=== PATIENT | male | born 1950 | race Caucasian/White ===

== ENCOUNTER 2019-07-16 08:53 | Day surgery (SDC) | payer OTHER ==
[~2019-07-16] VITALS: Ht 170.2 cm; Wt 89.7 kg
[~2019-07-16 08:53] MED LIST: GLUCCAP23 PO; LEVO30TA PO; MULT1TAB8 PO; NS 1,000 ML IV ONE; ROSU40TA4 PO; VITA500C24 PO
[2019-07-16] MEDS ORDERED: PROPOFOL 200 MG/20 ML VIAL As Ordered ONE ×2 (10:46→11:09)
--- NOTE | 2019-07-16 11:02 | ROOR ---
Patient Name: Rayray Buenrostro Procedure Date: 07/16/2019 10:45 AM Date of : 1950 Age: 69 Room: [facility] Gender: Male Note Status: Finalized Procedure: Colonoscopy Indications: Screening for colorectal malignant neoplasm Providers: DO Valentina Dodge MD: Valdo Alarcon Md Requesting Provider: Medicines: Propofol per Anesthesia Complications: No immediate complications. Procedure: Pre-Anesthesia Assessment: - Prior to the procedure, a History and Physical was performed, and patient medications and allergies were reviewed. The patient is competent. The risks and benefits of the procedure and the sedation options and risks were discussed with the patient. All questions were answered and informed consent was obtained. Patient identification and proposed procedure were verified by the physician, the nurse, the anesthesiologist and the machine tool technician instructor in the endoscopy suite. Mental Status Examination: alert and oriented. Airway Examination: normal oropharyngeal airway and neck mobility. Respiratory Examination: clear to auscultation. CV Examination: normal. Prophylactic Antibiotics: The patient does not require prophylactic antibiotics. Prior Anticoagulants: The patient has taken no previous anticoagulant or antiplatelet agents. ASA Grade Assessment: II - A patient with mild systemic disease. After reviewing the risks and benefits, the patient was deemed in satisfactory condition to undergo the procedure. The anesthesia plan was to use monitored anesthesia care (MAC). Immediately prior to administration of medications, the patient was re-assessed for adequacy to receive sedatives. The heart rate, respiratory rate, oxygen saturations, blood pressure, adequacy of pulmonary ventilation, and response to care were monitored throughout the procedure. The physical status of the patient was re-assessed after the procedure. The Colonoscope was introduced through the anus and advanced to the cecum, identified by appendiceal orifice and ileocecal valve. The colonoscopy was performed without difficulty. The patient tolerated the procedure well. Findings: Non-bleeding internal hemorrhoids were found during retroflexion. The hemorrhoids were Grade II (internal hemorrhoids that prolapse but reduce spontaneously). The exam was otherwise without abnormality on direct and retroflexion views. Impression: - Non-bleeding internal hemorrhoids. - The examination was otherwise normal on direct and retroflexion views. - No specimens collected. Recommendation: - Patient has a contact number available for emergencies. The signs and symptoms of potential delayed complications were discussed with the patient. Return to normal activities tomorrow. Written discharge instructions were provided to the patient. - Repeat colonoscopy in 5-10 years for screening purposes. - Return to my office PRN. Dimas Torres DO 07/16/2019 11:01:39 AM Electronically signed by Dimas Torres DO Number of Addenda: 0 Note Initiated On: 07/16/2019 10:45 AM Estimated Blood Loss: Estimated blood loss: none.
[2019-07-16 11:20] VITALS: BP 133/99
== END 2019-07-16 11:43 | disposition home or self-care (01) ==
LOC: M OPP 08:53
PROVIDERS: ATTEND Surgery
DX: Z12.11 Encounter for screening for malignant neoplasm of colon (principal); K64.1 Second degree hemorrhoids; Z79.899 Other long term (current) drug therapy

== ENCOUNTER → 2021-06-06 | Outpatient (REF) | payer MEDICARE ==
[~2021-06-06] MED LIST changes: +ASPI81CH8 PO; +DOCU100C16 PO; +FERR1TAB8 PO; +FOLI1TAB11 PO; -NS 1,000 ML IV ONE; +OXYC-517 PO; +THIA100TA PO
[2021-06-06 12:31] LABS: BLOOD UREA NITROGEN 11 MG/DL (7-18); CREATININE FOR GFR 1.07 MG/DL (0.70-1.30); GLUCOSE, FASTING 109 MG/DL (70-100)
[2021-06-06 12:32] LABS: ALBUMIN 4.3 GM/DL (3.2-5.2); ALT/SGPT 46 U/L (12-78); BILIRUBIN,TOTAL 1.2 MG/DL (0.2-1.0); CALCIUM LEVEL 8.6 MG/DL (8.8-10.2); CARBON DIOXIDE LEVEL 27 MEQ/L (21-32); CHLORIDE LEVEL 110 MEQ/L (98-107); CHOLESTEROL LEVEL 136 MG/DL (<200); CHOLESTEROL RISK RATIO 1.638 (<5); FREE T4 0.91 NG/DL (0.76-1.46); GLOMERULAR FILTRATION RATE > 60.0 (>49); HDL CHOLESTEROL 83 MG/DL (>40); LDL CHOLESTEROL 34 MG/DL (<100); NON-HDL-C 53 MG/DL; SODIUM LEVEL 141 MEQ/L (136-145); TOTAL PROTEIN 6.7 GM/DL (6.4-8.2); TRIGLYCERIDES LEVEL 93 MG/DL (<150)
== END ==
LOC: M SFHCCLAY 09:55
PROVIDERS: ATTEND Family Medicine
DX: R03.0 Elevated blood-pressure reading, without diagnosis of hypertension (principal); E78.5 Hyperlipidemia, unspecified; E03.9 Hypothyroidism, unspecified

== ENCOUNTER → 2021-06-10 | Outpatient (CLI) | payer MEDICARE ==
[~2021-06-10] MED LIST changes: -ASPI81CH8 PO; -DOCU100C16 PO; -FERR1TAB8 PO; -FOLI1TAB11 PO; -OXYC-517 PO; -THIA100TA PO
--- NOTE | 2021-06-10 09:17 | REP ---
INDICATION: PAIN RIGHT HIP. COMPARISON: None. TECHNIQUE: Single AP view of the pelvis. AP and frogleg views of the right hip. FINDINGS: AP pelvis: There is joint space narrowing of the right hip superiorly and osteophytic growth compatible with osteoarthritis. The left hip is unremarkable on this single view. There are surgical clips in the scrotum. Right hip AP and frogleg views: There is joint space narrowing superiorly and osteophytic growth compatible with osteoarthritis. No femoral head deformity. No fracture or dislocation. There are no calcifications. There are surgical clips in the scrotum IMPRESSION: Osteoarthritis. <Electronically signed by Dimas Olivas > 06/10/21 0900
== END ==
LOC: M SOG 08:51
PROVIDERS: ATTEND Orthopaedic Surgery Adult Reconstructive Orthopaedic Surgery
DX: M16.11 Unilateral primary osteoarthritis, right hip (principal)

== ENCOUNTER 2021-06-27 08:41 | Outpatient (RCR) | payer MEDICARE | END 2021-06-28 | LOC: M PT 08:41 | PROVIDERS: ATTEND Orthopaedic Surgery Adult Reconstructive Orthopaedic Surgery | DX: Z01.818 Encounter for other preprocedural examination (principal); Z96.641 Presence of right artificial hip joint ==

== ENCOUNTER → 2021-07-25 | Outpatient (REF) | payer MEDICARE ==
[2021-07-25 11:02] LABS: BASO % 0.6 % (0.0-1.0); EOS # 0.3 10^3/uL (0.0-0.5); HEMATOCRIT 46.3 % (42.0-52.0); LYMPH # 1.5 10^3/uL (1.5-5.0); LYMPH % 27.5 % (24.0-44.0); MEAN CORPUSCULAR HEMOGLOBIN 33.5 pg (27.0-33.0); MEAN CORPUSCULAR HGB CONC 34.6 g/dl (32.0-36.5); MEAN CORPUSCULAR VOLUME 97.1 fl (80.0-96.0); MONO # 0.6 10^3/uL (0.0-0.8); MONO % 11.8 % (2.0-8.0); NEUTROPHILS % 54.9 % (36.0-66.0); PLATELET COUNT, AUTOMATED 144 10^3/uL (150-450); RED BLOOD COUNT 4.77 10^6/uL (4.30-6.10); WHITE BLOOD COUNT 5.4 10^3/uL (4.0-10.0)
== END ==
LOC: M SFHCCLAY 07:11
PROVIDERS: ATTEND Family Medicine
DX: Z01.818 Encounter for other preprocedural examination (principal)

== ENCOUNTER → 2021-07-27 | Outpatient (CLI) | payer MEDICARE ==
--- NOTE | 2021-08-01 16:33 | REP ---
INDICATION: UNILAT OA FROM DYSPLASIA R HIP, ASSESS BONE QUALIT. Repeat dictation. This study is acquired on 07/27/2021 and is presented to me for dictation on 01 August 2021. COMPARISON: Comparison radiographs of the pelvis and right hip are from June 10, 2021. TECHNIQUE: Damion protocol. Helical scanning is acquired in axial 3 mm images are re-formatted at the hips and knees. Coronal and sagittal MPR images are included. FINDINGS: At the level of the hips, there is moderate to advanced osteoarthritis of the hip with superior joint space narrowing mild sclerosis and well established femoral osteophyte formation. Mild acetabular osteophyte formation is seen in there is a subcortical cyst in the superolateral aspect of the acetabulum. There is mild osteoarthritic spurring on the left with subcortical cyst formation visible on the left as well. Joint space is preserved on the left however. No bony destructive lesion is seen. Sacrum and SI joints are intact. There is degenerative spondylosis in the lumbar spine with partial fusion of the L5-S1 disc and osteophyte formation and disc space narrowing at L4-5. Prostate is mildly prominent. Vas deferens is calcified. There is a small nodule along the lateral wall of the urinary bladder on the left. I cannot exclude bladder neoplasm. this measures 1.1 cm in greatest diameter. Cystoscopy is recommended. No pelvic adenopathy is seen. At the knee joint level, there is mild patellar spurring bilaterally. No other finding. IMPRESSION: 1. Osteoarthritic changes most notably affecting the right hip. 2. Incidental finding of a 1.1 cm soft tissue nodule along the left posterolateral bladder wall rule out bladder neoplasm. Recommend cystoscopy. <Electronically signed by Haris Madera > 08/01/21 8012
== END ==
LOC: M RAD 09:50
PROVIDERS: ATTEND Orthopaedic Surgery Adult Reconstructive Orthopaedic Surgery
DX: M16.31 Unilateral osteoarthritis resulting from hip dysplasia, right hip (principal)

== ENCOUNTER → 2021-08-06 | Outpatient (CLI) | payer MEDICARE | LOC: M LABSMTC 10:26 | PROVIDERS: ATTEND Anesthesiology | DX: Z01.818 Encounter for other preprocedural examination (principal); Z11.52 Encounter for screening for COVID-19 ==

== ENCOUNTER 2021-08-11 08:20 | Inpatient (IN) | payer MEDICARE ==
[~2021-08-11] VITALS: Ht 167.6 cm; Wt 92.5 kg
[~2021-08-11 08:20] MED LIST changes: +ACETAMINOPHEN 500 MG TAB PO ONE; +LIDOCAINE 1% MDV 20ML VIAL SQ PRN; +LR 1,000 ML IV ONE; +NAPROXEN 250 MG TAB PO ONE; +NS 1,000 ML IV ONE; +PREGABALIN 25 MG CAP (LYRICA) PO ONE; +ROPIVA 125MG/EPINEPH 0.25MG/CLONID 40MCG/KETOR 15MG IN NS 50ML SYRINGE PA ONE; +TRANEXAMIC ACID INJection 1,000 MG in NS 50 ML IV ONE; +ceFAZolin SOD 2 GM in IV 1 EA IV ONE; +dexameTHASONE 4 MG/ML 1ML VIAL (J1100 PER 1MG) IV ONE
--- OUTSIDE RECORDS SUMMARY | 2021-08-11 08:23 | CCD ---
Author Author [facility] Organization [facility] Address Unknown Phone Unavailable Care Team Providers Care Sales Promotion Manager Name Role Phone Elsy Heart Unavailable PROBLEMS Type Condition ICD9-CM Code VQJ05-HD Code Onset Dates Condition S tatus W/U Status Risk SNOMED Code Notes Problem White coat syndrome without diagnosis of hypertension R03.0 Active confirmed 982997391 Problem RBBB I45.10 Active confirmed 50430294 Problem Other chronic pain G89.29 Active confirmed 8 9356526 Problem Acquired hypothyroidism E03.9 Active confirmed 668525337 Problem Dyslipidemia E78.5 Active confirmed 2675468 07 Problem IFG (impaired fasting glucose) R73.01 Active confir med [id number] ALLERGIES No Known Allergies ENCOUNTERS from 1950 to 2021-08-03 Encounter Location Date Provider Diagnosis [address] [phone] [place] [address] Jul, 2021 Elsy Heart Preoperative clearance Z01.818 ; RBBB I4 5.10 ; White coat syndrome without diagnosis of hypertension R03.0 ; Right ear impacted cerumen H61.21 ; Dyslipidemia E78.5 ; Acquired hypothyroidism E03.9 and Immunization not carried out because of patient refusal Z28.21 IMMUNIZATIONS No Information SOCIAL HISTORY Tobacco Use: Social History Observation Description Date Details (start date - stop date) Never Smoker Sex Assigned At : Social History Observation Description Sex Assigned At Unknown Audit Question Answer Notes Total Score: 8 Interpretation: Simple Advice Language: Question Answer Notes Languages spoken: Vietnamese Hinduism: Question Answer Notes Hinduism No confucianism beliefs that would impact health care. Sexual Hx: Question Answer Notes Had sex in the last 12 months (vaginal, oral, or anal)? Yes Have you ever had an STD? No with Women only Use protection? No Drug and Alcohol Question Answer Notes Total Score: 0 Interpretation: No problems reported Alcohol Screening: Question Answer Notes Did you have a drink containing alcohol in the past year? Ye s Points 5 Interpretation Positive How often did you have six or more drinks on one occas ion in the past year? Never (0 points) How many drinks did you have on a typica l day when you were drinking in the past year? 3 or 4 (1 point) How often did you have a drink containing alcohol in t he past year? Four or more times a week (4 points) Tobacco Use: Question Answer Notes Are you a: never smoker REASON FOR REFERRAL from 1950 to 2021-08-03 Reason 71-year-old male with right bundle branch block for preoperative clearance.|URGENT REFERRAL Diagnosis 1 RBBB (I45.10) Diagnosis 2 Preoperative clearance (Z01. 818) Referral Organization [facility] Referring Provider First Name Elsy Referring Provider Last Name Una Referring Provider Specialty Family Medicine Referred Provider Cardiology,Assoc Referred Provider Specialty Cardiology Referral Priority Urgent Referral Appointment Date 2021-09-06 General Notes Elsy Heart DO 2020 9:39:42 AM > Patient is a 71-year-old male who presented for preoperative evaluation. Patient was noted to have a right bundle branch block on EKG. There were no priors for comparison. Patient does not have any other cardiac history. Referral for preoperative evaluation. Please evaluate and treatKrystal Valladares LPN 08/01/2021 12:10:05 PM > referral sentKrystal Valladares LPN 08/01/2021 12:10:39 PM > Sending EKG separately. Would not attach to referral VITAL SIGNS Weight 206 lbs Jul, Height 5'6" in Jul, BMI 33.25 kg/m2 Jul, Heart Rate 60 /min Jul, Respiratory Rate 18 /min Jul, Temperature 97.5 degrees Fahrenheit Jul, Oximetry 97%RA Jul, Blood pressure systolic 154 mm Hg Jul, Blood pressure diastolic 99 mm Hg Jul, MEDICATIONS Medication SIG (Take, Route, Frequency, Duration) Notes Start Da te End Date Status Multivitamin Adult - 1 tablet Orally Once a day for 30 day(s) Active Sqgrri-Zqpbayzqn-Flidiv-Hyal - as directed Orally Active Tylenol Extra Strength 500 MG 1 tablet as needed Orally every 6 hrs Active Crestor 40 MG 1 tablet Orally Once a day for 90 days Active Move Free Ultra Joint Health 40-5-3.3 MG as directed Orally Active Synthroid 50 MCG 1 tablet in the morning on a n empty stomach Orally Once a day for 90 days Active Aspirin 81 81 MG 1 tablet Orally Once a day Not-Taking Aleve 220 MG 1 tablet with food or milk as needed Orally every 12 hrs Active Vitamin C 500 MG as directed Orally Active PROCEDURES from 1950 to 2021-08-03 Procedure Date Ordered Result Body Site ELECTROCARDIOGRAM, COMPLETE EKG 2021-08-01 N/A RESULTS No Results REASON FOR VISIT Dr Quintana EKG needed MEDICAL (GENERAL) HISTORY Type Description Date Medical History high cholesterol Medical History athritis Medical History hypothyroid Surgical History No know Surgical history Goals Section No Information Health Concerns No Information MEDICAL EQUIPMENT No Information MENTAL STATUS No Information FUNCTIONAL STATUS No Information ASSESSMENTS Encounter Date Diagnosis Assessment Notes Treatment Notes Treatm ent Clinical Notes Jul, Preoperative clearance (ICD-10 - Z01.818) Patient presents for preoperative evaluation for right hip surgery on 08/11/2021. Review of their medical history, medications were performed. At this time patient does require further medical evaluation prior to surgery. Patient does not require any further laboratory evaluation prior to surgery. Patient was counseled to hold all medications the morning of surgery. Patient is not medically optimized for surgery and will need evaluation by cardiology. Jul, RBBB (ICD-10 - I45.10) Referral placed to cardiology Jul, White coat syndrome without diagnosis of hypertension (ICD-10 - R03.0) Continue to monitor Jul, Right ear impacted cerumen (ICD-10 - H61.21) Patient asymptomatic, this will not have any impact on surgery Jul, Dyslipidemia (ICD-10 - E78.5) Refill sent Jul, Acquired hypothyroidism (ICD-10 - E03.9) Refill sent Jul, Immunization not carried out because of patient refusal (ICD-10 - Z28.21) PLAN OF TREATMENT Medication Medication Name Sig Start Date Stop Date Crestor 40 MG 1 tablet Orally Once a day for 90 days Synthroid 50 MCG 1 tablet in the morning on a n empty stomach Orally Once a day for 90 days Treatment Notes Assessment Notes Clinical Notes Preoperative clearance Patient presents for preoperative evaluation for right hip surgery on 08/11/2021. Review of their medical history, medications were performed. At this time patient does require further medical evaluation prior to surgery. Patient does not require any further laboratory evaluation prior to surgery. Patient was counseled to hold all medications the morning of surgery. Patient is not medically optimized for surgery and will need evaluation by cardiology. RBBB Referral placed to c ardiology White coat syndrome without diagnosis of hypertension Continue to monitor Right ear impacted cerumen Patient asymp tomatic, this will not have any impact on surgery Dyslipidemia Refill sent Acquired hypothyroidism Refill sent Referrals Referral Date Details 2021-09-06 2021-09-06, 71-year-old male with right bundle branch block for preoperative clearance.|URGENT REFERRAL, Assoc Cardiology Next Appt Details 3 months: follow up Reason: Provider Name:Elsy Heart, 2021-10 08:00:00 AM, [address], , [place], [address], Insurance Providers Payer Name Payer Address Payer Phone Insured Name Patient Relati onship to Insured Coverage Start Date Coverage End Date [employer] [facility] [address] [address] [facility] [address] [phone] SURY MELENDEZ self
--- OUTSIDE RECORDS SUMMARY | 2021-08-11 08:23 | CCD ---
Author Author [facility] Organization [facility] Address Unknown Phone Unavailable Care Team Providers Care Bridges Supervisor Name Role Phone Elsy Heart Unavailable PROBLEMS Type Condition ICD9-CM Code WZZ58-BM Code Onset Dates Condition S tatus W/U Status Risk SNOMED Code Notes Problem White coat syndrome without diagnosis of hypertension R03.0 Active confirmed 188644605 Problem RBBB I45.10 Active confirmed 50729197 Problem Other chronic pain G89.29 Active confirmed 8 8657209 Problem Acquired hypothyroidism E03.9 Active confirmed 711724753 Problem Dyslipidemia E78.5 Active confirmed 6955911 07 Problem IFG (impaired fasting glucose) R73.01 Active confir med 742421218 ALLERGIES No Known Allergies ENCOUNTERS from 1950 to 2021-08-09 Encounter Location Date Provider Diagnosis [address] [phone] [place] [address] Jul, Elsy Heart IMMUNIZATIONS No Information SOCIAL HISTORY Tobacco Use: Social History Observation Description Date Details (start date - stop date) Never Smoker Sex Assigned At : Social History Observation Description Sex Assigned At Unknown Audit Question Answer Notes Total Score: 8 Interpretation: Simple Advice Language: Question Answer Notes Languages spoken: Greenlandic Restoration: Question Answer Notes Restoration No congregation beliefs that would impact health care. Sexual [...] you a: never smoker REASON FOR REFERRAL No Information VITAL SIGNS No information MEDICATIONS Medication SIG (Take, Route, Frequency, Duration) Notes Start Da te End Date Status Multivitamin Adult - 1 tablet Orally Once a day for 30 day(s) Active Ouwppq-Udxcxfoyd-Fiaugb-Hyal - as directed Orally Active Tylenol Extra [...] 500 MG as directed Orally Active PROCEDURES No Information RESULTS No Results REASON FOR VISIT MARKY CAN YOU CHECK ON THIS.? MEDICAL (GENERAL) HISTORY Type Description Date Medical History high cholesterol Medical History athritis Medical History hypothyroid Surgical History No know Surgical history Goals Section No Information Health Concerns No Information MEDICAL EQUIPMENT No Information MENTAL STATUS No Information FUNCTIONAL STATUS No Information ASSESSMENTS No Information PLAN OF TREATMENT Medication Medication Name Sig Start Date Stop Date Crestor 40 MG 1 tablet Orally Once a day for 90 days Synthroid 50 MCG 1 tablet in the morning on a n empty stomach Orally Once a day for 90 days Next Appt Details Provider Name:Elsy Heart, 2021-10 08:00:00 AM, [address], , [place], [address], Insurance Providers Payer Name Payer Address Payer Phone Insured Name Patient Relati onship to Insured Coverage Start Date Coverage End Date [facility] [address] [address] [facility] [phone] SURY MELENDEZ self
--- OUTSIDE RECORDS SUMMARY | 2021-08-11 08:24 | CCD | Continuity of Care Document ---
Author Author Rayray HE MD Organization Unknown Address [address] , [place] [address] Phone [phone] Care Team Providers Care Siphon Operator Name Role Phone Valdo Alarcon M.D. AUTM [phone] AUTM Unavailable Elsy Heart D.O. AUTM [phone] Problems Description No Information Available Social History Type Date Description Comments Sex Unknown ETOH Use 4 A Day beer Tobacco Use Start: Unknown Denies Smoking Recreational Drug Use Denies Drug Use Smoking Status Reviewed: 06/10/21 Denies Smoking Allergies, Adverse Reactions, Alerts Description No Known Drug Allergies Medications Active Medications SIG Qnty Indications Ordering Provide r Date Synthroid 25mcg Tablets 1 qd Unknown Rosuvastatin Calcium 40mg Tablets 1 qd Unknown Multivitamin Adults 50+ Adlt 50+ T ablets 1 by mouth every day Unknown Glucosamine Chondroitin 1500 Complex 1500Com Capsules 2 daily Unknown Vitamin C 500mg Tablets 1 a d ay Unknown Immunizations Description No Information Available Vital Signs Date Vital Result Comment 06/10/2021 9:11am Body Temperature 98.0 F Height 67 inches 5'7" Weight 201.00 lb BMI (Body Mass Index) 31.5 kg/m2 [place] Body Weight 148 lb Weight 91.174 kg BSA (Body Surface Area) 2.03 m2 07/07/2019 10:44am BP Systolic 164 mmHg BP Diastolic 98 mmHg Height 67 inches 5'7" Weight 198.38 lb BMI (Body Mass Index) 31.1 kg/m2 [place] Body Weight 148 lb Weight 89.983 kg BSA (Body Surface Area) 2.02 m2 Results Description No Information Available Procedures Description No Information Available Medical Devices Description No Information Available Encounters Description No Information Available Assessments Description No Information Available Plan of Treatment No Information Available Functional Status Description No Information Available Mental Status Description No Information Available Referrals Description No Information Available
--- OUTSIDE RECORDS SUMMARY | 2021-08-11 08:24 | CCD ---
Author Author [facility] Organization [facility] Address Unknown Phone Unavailable Care Team Providers Care Gluing Machine Operator Electronic Name Role Phone Ghassan Quintana MD Unavailable Unavailable Ghassan Quintana MD Unavailable Unavailable Ghassan Quintana MD Unavailable Unavailable Ghassan Quintana MD Unavailable Unavailable Ghassan Quintana MD Unavailable Unavailable Ghassan Quintana MD Unavailable Unavailable Ghassan Quintana MD Unavailable Unavailable Ghassan Quintana MD Unavailable Unavailable Ghassan Quintana MD Unavailable Unavailable DEMETRIUS BLUM Unavailable Unavailable Jessica Hilario MD Unavailable Unavailable Jessica Hilario MD Unavailable Unavailable Jessica Hilario MD Unavailable Unavailable Jessica Hilario MD Unavailable Unavailable Jessica Hilario MD Unavailable Unavailable Jessica Hilario MD Unavailable Unavailable Jessica Hilario MD Unavailable Unavailable Jessica Hilario MD Unavailable Unavailable Jessica Hilario MD Unavailable Unavailable Jessica Hilario MD Unavailable Unavailable Jessica Hilario MD Unavailable Unavailable Jessica Hilario MD Unavailable Unavailable Jessica Hilario MD Unavailable Unavailable Jessica Hilario MD Unavailable Unavailable Jessica Hilario MD Unavailable Unavailable Jessica Hilario MD Unavailable Unavailable Jessica Hilario MD Unavailable Unavailable Jessica Hilario MD Unavailable Unavailable Jessica Hilario MD Unavailable Unavailable Jessica Hilario MD Unavailable Unavailable Jessica Hilario MD Unavailable Unavailable Jessica Hilario MD Unavailable Unavailable Jessica Hilario MD Unavailable Unavailable Jessica Hilario MD Unavailable Unavailable Jessica Hilario MD Unavailable Unavailable Jessica Hilario MD Unavailable Unavailable Slezka, Vojtech MD Unavailable Unavailable Slezka, Vojtech MD Unavailable Unavailable Slezka, Vojtech MD Unavailable Unavailable Slezka, Vojtech MD Unavailable Unavailable Slezka, Vojtech MD Unavailable Unavailable Slezka, Vojtech MD Unavailable Unavailable Slezka, Vojtech MD Unavailable Unavailable Slezka, Vojtech MD Unavailable Unavailable Slezka, Vojtech MD Unavailable Unavailable Slezka, Vojtech MD Unavailable Unavailable Slezka, Vojtech MD Unavailable Unavailable Slezka, Vojtech MD Unavailable Unavailable Slezka, Vojtech MD Unavailable Unavailable Slezka, Vojtech MD Unavailable Unavailable Slezka, Vojtech MD Unavailable Unavailable Slezka, Vojtech MD Unavailable Unavailable Slezka, Vojtech MD Unavailable Unavailable Slezka, Vojtech MD Unavailable Unavailable Slezka, Vojtech MD Unavailable Unavailable Slezka, Vojtech MD Unavailable Unavailable Slezka, Vojtech MD Unavailable Unavailable Slezka, Vojtech MD Unavailable Unavailable Slezka, Vojtech MD Unavailable Unavailable Slezka, Vojtech MD Unavailable Unavailable Slezka, Vojtech MD Unavailable Unavailable Slezka, Vojtech MD Unavailable Unavailable Slezka, Vojtech MD Unavailable Unavailable Slezka, Vojtech MD Unavailable Unavailable Slezka, Vojtech MD Unavailable Unavailable Slezka, Vojtech MD Unavailable Unavailable Slezka, Vojtech MD Unavailable Unavailable Slezka, Vojtech MD Unavailable Unavailable Re-disclosure Warning The records that you are about to access may contain information from federally-assisted alcohol or drug abuse programs. If such information is present, then the following federally mandated warning applies: This information has been disclosed to you from records protected by federal confidentiality rules (42 CFR part 2). The federal rules prohibit you from making any further disclosure of this information unless further disclosure is expressly permitted by the written consent of the person to whom it pertains or as otherwise permitted by 42 CFR part 2. A general authorization for the release of medical or other information is NOT sufficient for this purpose. The Federal rules restrict any use of the information to criminally investigate or prosecute any alcohol or drug abuse patient.The records that you are about to access may contain highly sensitive health information, the redisclosure of which is protected by Article 27-F of the [facility] Public Health law. If you continue you may have access to information: Regarding HIV / AIDS; Provided by facilities licensed or operated by the [facility] Office of Mental Health; or Provided by the [facility] Office for People With Developmental Disabilities. If such information is present, then the following [facility] mandated warning applies: This information has been disclosed to you from confidential records which are protected by state law. State law prohibits you from making any further disclosure of this information without the specific written consent of the person to whom it pertains, or as otherwise permitted by law. Any unauthorized further disclosure in violation of state law may result in a fine or half-way sentence or both. A general authorization for the release of medical or other information is NOT sufficient authorization for further disc losure. Family History Family Member Name Family Member Gender Family Member Status Date o f Status Description Data Source(s) Unknown Male Problem [facility] ([facility]) () - at age 89 Encounters Encounter Providers Location Date Indications Data Source(s ) Outpatient Referrer: Jessica ANTHONYBRIAN-SJP.BRIAN 07/29 01:42:42 PM EDT - 08/10/2021 03:36:[address] [facility] Outpatient Attender: Jessica Hilario MDReferrer: DWAYNE SAN-SJP.BRIAN 08/08/2021 08:17:20 AM EDT - 08/08/2021 09:31:[address] [facility] [place] [address] [place] [address] 08/04/2021 12:00:00 AM EDT eCW1 ([facility]) Outpatient [address] [place] [address] 08/01/2021 12:00:00 AM EDT eCW1 ([facility]) [place] [address] [facility] [address] 06/22/2021 12:00:00 AM EDT eCW1 ([facility]) Unknown [address] [facility] [place] [address] 06/17/2021 12:00:00 AM EDT eCW1 ([facility]) Outpatient Attender: Ghassan Marie/Jose M/Thomas/Angelina reid 06/10/2021 09:00:00 AM EDT [facility] ([facility]) [place] [address] [facility] [address] [facility] [address] 06/06/2021 12:00:00 AM EDT eCW1 ([facility]) Immunizations Vaccine Date Status Description Data Source(s) COVID-19 VACC,MRNA(MODERNA)/PF 03/21/2021 12:00:00 AM EDT completed [facility] COVID-19 VACCINE Moderna 03/21/2021 12:00:00 AM EDT completed [facility] Vaccine Series Complete: YESThis Data wa s Submitted to [facility] Via [employer]. COVID-19 VACCINE Moderna 02/17/2021 12:00:00 AM EDT completed [facility] Vaccine Series Complete: NOThis Data was Submitted to [facility] Via [employer]. COVID-19 VACC,MRNA(MODERNA)/PF 02/17/2021 12:00:00 AM EDT completed [facility] Medications Medication Brand Name Start Date Product Form Dose Route Admi nistrative Instructions Pharmacy Instructions Status Indications Reaction Description Data Source(s) 50 mcg 08/01/2021 12:00:00 AM EDT tablet 90 TAKE ONE TABLET BY MOUTH EVERY DAY IN THE MORNING ON AN EMPTY STOMACH TAKE ONE TABLET BY MOUTH EVERY DAY IN MORNING ON AN EMPTY STOMACH SOLD: 08/09/2021 [facility] Rosuvastatin calcium 40 MG Oral Tablet ROSUVASTATIN CALCIUM 08/01/2021 12:00:00 AM EDT tablet 90 TAKE ONE TABLET BY MOUTH HIPOLITO DAY TAKE ONE TABLET BY MOUTH EVERY DAY SOLD: 08/09/2021 [facility] Insurance Providers Payer name Policy type / Coverage type Policy ID Covered alliance party ID Covered alliance party's relationship to negron Policy Negron Plan Information [facility] MEDICARE [id number] [facility] MEDICARE [id number] Addie [id number] [facility] [id number] SP [id number] [facility] [id number] SP [id number] 'S ADMINISTRATION [id number] SP [id number] SELF PAY ONLY MEDICARE SP A[employer] HE[employer] CARE OPTIONS [id number] [facility] [id number] [facility]-Med[facility] Part B [id number] [facility] [employer] [id number] Self [id number] [facility] [employer] [id number] Self [id number] Problems, Conditions, and Diagnoses Code Display Name Description Problem Type Effective Dates Data Source(s) I45.2 Bifascicular block Bifascicular block Diagnosis 01:42:[address] [facility] I45.10 Unspecified right bundle-branch block Un specified right bundle-branch block Diagnosis 08/08/2021 08:17:[address] [facility] Z01.810 Encounter for preprocedural cardiovascul ar examination Encounter for preprocedural cardiovascul Diagnosis 08/08/2021 08:17:20 AM EDT [facility] R03.0 Elevated blood pressure reading Elevated blood pressur e reading [id number] 08/08/2021 12:00:[address] [facility] I45.2 Bifascicular block Bifascicular block [id number] 12:00:[address] [facility] I45.10 Right bundle branch block Right bundle branch block 64 [id number] 08/06/2021 12:00:[address] [facility] Z01.810 Preoperative cardiovascular examination Preoperative cardiovascular examination [id number] 08/06/2021 12:00:[address] [facility] I45.10 [id number] RBBB Problem 08/01/2021 12:00:00 AM ED T eCW1 ([facility]) R73.01 [id number] IFG (impaired fasting glucose) Problem 06/22/2021 12:00:00 AM EDT eCW1 ([facility]) R03.0 [id number] White coat syndrome without diagnosis of hypertension Problem 06/22/2021 12:00:00 AM EDT eCW1 ([facility]) E78.5 [id number] Dyslipidemia Problem 06/06/2021 12:00:00 AM EDT eCW1 ([facility]) E03.9 [id number] Acquired hypothyroidism Problem 06/06/2021 1 2:00:00 AM EDT eCW1 ([facility]) Surgeries/Procedures Procedure Description Date Indications Data Source(s) ECG ROUTINE ECG W/LEAST 12 LDS W/I&R <td>POCT AMB EKG</td><td>Routine</td><td>08/08/2021 9:07 AM EDT</td><td> Preoperative cardiovascular examination Right bundle branch block</td><td> </td> 08/08/2021 09:07:00 AM EDT Right bundle branch blockPreoperative cardiovascular e xamination [facility] Right bundle branch block Preoperative cardiovascular examination ECG ROUTINE ECG W/LEAST 12 LDS W/I&R 08/01/2021 12:00: 00 AM EDT eCW1 ([facility]) BLOOD COUNT COMPLETE AUTO&AUTO DIFRNTL WBC COUNT <td>C BC AND DIFFERENTIAL</td><td>Routine</td><td>07/25/2021</td><td></td><td> </td> 07/25/2021 12:00:[address] [facility] LIPID PANEL <td>LIPID PANEL</td><td>Rout ine</td><td>07/25/2021</td><td></td><td> </td> 07/25/2021 12:00:[address] [facility] BASIC METABOLIC PANEL CALCIUM TOTAL <td>BASIC METABOLI C PANEL</td><td>Routine</td><td>07/25/2021</td><td></td><td> </td> 07/25/2021 12:00:[address] [facility] OFFICE OUTPATIENT NEW 45 MINUTES 06/10/2021 12:00:00 A M EDT [facility] ([facility] ) Results ID Date Data Source TSH 06/06/2021 12:00:00 AM EDT eCW1 ([facility]) Name Value Range Interpretation Code Description Data Tanya rce(s) Supporting Document(s) 1.850 0.358-3.740 THYROID STIMULATING HORM ONE eCW1 ([facility]) ID Date Data Source LIPID PANEL (CARDIAC RISK) 06/06/2021 12:00:00 AM EDT eCW1 ( [facility]) Name Value Range Interpretation Code Description Data Tanya rce(s) Supporting Document(s) Cholesterol in HDL [Moles/volume] in Serum or Plasma 83 >40 HDL CHOLESTEROL eCW1 ([facility]) Triglyceride [Mass/volume] in Serum or Plasma by calculation 93 <150 TRIGLYCERIDES LEVEL eCW1 ([facility]) Cholesterol [Moles/volume] in Serum or Plasma 136 <200 CHOLESTEROL LEVEL eC ([facility]) 53 NON-HDL-C eCW1 ([facility]) 1.638 <5 CHOLESTEROL RISK RATIO eCW1 ([facility]) Cholesterol in LDL [Mass/volume] in Serum or Plasma by calculation 34 <100 LDL CHOLESTEROL eC1 ([facility]) ID Date Data Source FREE T4 06/06/2021 12:00:00 AM EDT eCW1 ([facility]) Name Value Range Interpretation Code Description Data Tanya rce(s) Supporting Document(s) 0.91 0.76-1.46 FREE T4 eCW1 ([facility]) ID Date Data Source Comprehensive Metabolic Profile (CMP) 06/06/2021 12:00:00 AM EDT eCW1 ([facility]) Name Value Range Interpretation Code Description Data Tanya rce(s) Supporting Document(s) 109 70-100 GLUCOSE, FASTING eCW1 ([facility]) 1.07 0.70-1.30 CREATININE FOR GFR eCW1 ([facility]) 11 7-18 BLOOD UREA NITROGEN eCW1 ([facility]) > 60.0 >49 GLOMERULAR FILTRATION RATE eCW 1 ([facility]) 5.0 3.5-5.1 POTASSIUM SERUM eCW1 ([facility]) 110 98-107 CHLORIDE LEVEL eCW1 ([facility]) 141 136-145 SODIUM LEVEL eCW1 ([facility]) 8.6 8.8-10.2 CALCIUM LEVEL eCW1 ([facility]) 27 21-32 CARBON DIOXIDE LEVEL eCW1 ([facility]) 46 12-78 ALT/SGPT eCW1 ([facility]) 74 45-117 ALKALINE PHOSPHATASE eCW1 ([facility]) 30 7-37 AST/SGOT eCW1 ([facility]) 4.3 3.2-5.2 ALBUMIN eCW1 ([facility]) 1.2 0.2-1.0 BILIRUBIN,TOTAL eCW1 ([facility]) 6.7 6.4-8.2 TOTAL PROTEIN eCW1 ([facility]) 1.8 ALBUMIN/GLOBULIN RATIO eCW1 ([facility]) Procedure Social History Code Duration Value Status Description Data Source(s ) Alcohol intake 08/08/2021 12:00:00 AM EDT Current drinker of al cohol (finding) completed Current drinker of alcohol (finding) [facility] Tobacco use and exposure 08/08/2021 12:00:00 AM EDT Never used co mpleted Never used [facility] Smoking 08/08/2021 12:00:00 AM EDT Never smoker completed Never s moker [facility] Smoking 08/01/2021 12:00:00 AM EDT Never Smoker completed Never S moker eCW1 ([facility]) Smoking 08/01/2021 12:00:00 AM EDT Never Smoker completed Never S moker eCW1 ([facility]) Smoking 06/22/2021 12:00:00 AM EDT Never Smoker completed Never S moker eCW1 ([facility]) Smoking 06/06/2021 12:00:00 AM EDT Never Smoker completed Never S moker eCW1 ([facility]) Smoking 06/06/2021 12:00:00 AM EDT Never Smoker completed Never S moker eCW1 ([facility]) Vital Signs ID Date Data Source UNK Name Value Range Interpretation Code Description Data Source(s) Systolic blood pressure 148 mm[Hg] 148 mm[Hg] [facility] Diastolic blood pressure 95 mm[Hg] 95 mm[Hg] [facility] Heart rate 67 /min 67 /min [facility] Respiratory rate 18 /min 18 /min [facility] Body height 167.[address] [facility] Body weight 93.[address] [facility] Body mass index (BMI) [Ratio] 33.41 kg/m2 33.41 kg/m2 [facility] Oxygen saturation in Arterial blood by Pulse oximetry 98 % 98 % [facility] Body weight 206 [lb_av] 206 [lb_av] eCW1 ([facility]) Body height [in_i] eCW1 ([facility]) Body mass index (BMI) [Ratio] 33.25 kg/m2 33.25 kg/m2 W1 ([facility]) Heart rate 60 /min 60 /min eCW1 ([facility]) Respiratory rate 18 /min 18 /min eCW1 ([facility]) Body temperature 97.5 [degF] 97.5 [degF] eCW1 ( [facility]) Systolic blood pressure 154 mm[Hg] 154 mm[Hg] e CW1 ([facility]) Diastolic blood pressure 99 mm[Hg] 99 mm[Hg] eCW1 ([facility]) Body weight 201 [lb_av] 201 [lb_av] eCW1 ([facility]) Body height [in_i] eCW1 ([facility]) Body mass index (BMI) [Ratio] 32.44 kg/m2 32.44 kg/m2 eCW1 ([facility]) Heart rate 72 /min 72 /min eCW1 ([facility]) Respiratory rate 18 /min 18 /min eCW1 ([facility]) Body temperature 98.1 [degF] 98.1 [degF] eCW1 ( [facility]) Systolic blood pressure 160 mm[Hg] 160 mm[Hg] e CW1 ([facility]) Diastolic blood pressure 99 mm[Hg] 99 mm[Hg] eCW1 ([facility]) Body temperature 98.0 [degF] 98.0 [degF] [facility] Body height 67 [in_i] 67 [in_i] [facility] ([facility], ) 5'7" Body weight 201.00 [lb_av] 201.00 [lb_av] MEDEN T ([facility], ) Body mass index (BMI) [Ratio] 31.5 kg/m2 31.5 k g/m2 [facility] ([facility], ) [place] body weight 148 [lb_av] 148 [lb_av] MEDEN T ([facility], ) Body weight 91.[address] [facility] ([facility], ) Body surface area Derived from formula 2.[address] [facility] ([facility], ) Heart rate 74 /min 74 /min eCW1 ([facility]) Respiratory rate 18 /min 18 /min eCW1 ([facility]) Body temperature 97.6 [degF] 97.6 [degF] eCW1 ( [facility]) Systolic blood pressure 168 mm[Hg] 168 mm[Hg] e CW1 ([facility]) Diastolic blood pressure 100 mm[Hg] 100 mm[Hg] eCW1 ([facility]) Body weight 201 [lb_av] 201 [lb_av] eCW1 ([facility]) Body height [in_i] W1 ([facility]) Body mass index (BMI) [Ratio] 32.44 kg/m2 32.44 kg/m2 [facility] ([facility])
--- OUTSIDE RECORDS SUMMARY | 2021-08-11 08:24 | CCD | Continuity of Care Document ---
Author Author Rayray HE MD Organization Unknown Address [address] , [place] [address] Phone [phone] Care Team Providers Care Intelligent Systems Engineer Name Role Phone Valdo Alarcon M.D. AUTM [phone] AUTM Unavailable Elsy Heart D.O. AUTM [phone] Problems Description No Information Available Social History [...] lb BMI (Body Mass Index) 31.5 kg/m2 [place] Body Weight 148 lb Weight 91.174 kg BSA (Body Surface Area) 2.03 m2 07/07/2019 10:44am BP Systolic 164 mmHg BP Diastolic 98 mmHg Height 67 inches 5'7" Weight 198.38 lb BMI (Body Mass Index) 31.1 kg/m2 [place] Body Weight 148 lb Weight 89.983 kg BSA (Body Surface Area) 2.02 m2 Results Description No Information Available Procedures Date Code Description Status 06/10/2021 06954 Office/Outpatient New Moderate M DM 45-59 Minutes Completed Medical Devices Description No Information Available Encounters Type Date Location Provider Dx Diagnosis Office Visit 06/10/2021 9:00a [facility] Ghassan He MD 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 The patient has severe pain and symptoms and limitations in his activity. 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 We have discussed options for moving forward with a total joint replacement which is his interest.I did explain to the patient that a total joint replacement procedure is an elective procedure. Candidacy for the procedure is based on imaging and the patient's symptoms and whether or not the patient would like to proceed with the surgery. The procedure is performed for pain relief only. Any other gains are secondary. The risks of the procedure include but are not limited to infection, periprosthetic fracture, damage to local neurovascular or soft tissue structures, deep vein thrombosis or pulmonary emboli, and need for revision s urgery. Anesthetic risks will be discussed with the anesthesiologist. These include but are not limited to, heart attack, stroke and .The patient is aware that surgery is planned to be assisted with a robotic [place] program.The patient has signed consent for the procedure. We will move forward with the booking process. Functional Status Description No Information Available Mental Status Description No Information Available Referrals Description No Information Available
--- OUTSIDE RECORDS SUMMARY | 2021-08-11 08:24 | CCD ---
Author Author [facility] Organization [facility] Address Unknown Phone Unavailable Care Team Providers Care Research Recruiter Name Role Phone Una Elsy Unavailable PROBLEMS Type Condition ICD9-CM Code [id number] Code Onset Dates Condition S tatus W/U Status Risk SNOMED Code Notes Problem White coat syndrome without diagnosis of hypertension R03.0 Active confirmed 433044629 Problem IFG (impaired fasting glucose) R73.01 Active confir med 387934602 Problem Other chronic pain G89.29 Active confirmed 8 6779180 Problem Acquired hypothyroidism E03.9 Active confirmed 388470305 Problem Dyslipidemia E78.5 Active confirmed [id number] ALLERGIES No Known Allergies ENCOUNTERS from 1950 to 2021-07-05 Encounter Location Date Provider Diagnosis [facility] [phone] [place] [address] May, Elsy Heart IFG (impaired fasting glucose) R73.01 ; White coat syndrome without diagnosis of hypertension R03.0 ; Acquired hypothyroidism E03.9 and Dyslipidemia E78.5 IMMUNIZATIONS No Information SOCIAL HISTORY Tobacco Use: Social History Observation Description Date Details (start date - stop date) Never Smoker Sex Assigned At : Social History Observation Description Sex Assigned At Unknown Audit Question Answer Notes Total Score: 8 Interpretation: Simple Advice Language: Question Answer Notes Languages spoken: Yoruba Confucianist: Question Answer Notes Confucianist No jain beliefs that would impact health care. Sexual [...] REASON FOR REFERRAL No Information VITAL SIGNS Weight 201 lbs May, Height 5'6" in May, BMI 32.44 kg/m2 May, Heart Rate 72 /min May, Respiratory Rate 18 /min May, Temperature 98.1 degrees Fahrenheit May, Oximetry 96 May, Blood pressure systolic 160 mm Hg May, Blood pressure diastolic 99 mm Hg May, MEDICATIONS Medication SIG (Take, Route, Frequency, Duration) Notes Start Da te End Date Status Tylenol Extra Strength 500 MG 1 tablet as needed Orally every 6 hrs Active Crestor 40 MG 1 tablet Orally Once a day Active Qhofie-Isutrxwyi-Cxabdo-Hyal - as directed Orally Active Vitamin C 500 MG as directed Orally Active Synthroid 50 MCG 1 tablet in the morning on an empty stom ach Orally Once a day Active Move Free Ultra Joint Health 40-5-3.3 MG as directed Orally Active Aleve 220 MG 1 tablet with food or milk as needed Orally every 12 hrs Active Multivitamin Adult - 1 tablet Orally Once a day for 30 day(s) Active Aspirin 81 81 MG 1 tablet Orally Once a day Not-Taking PROCEDURES No Information RESULTS No Results REASON FOR VISIT 2 week lab followup MEDICAL (GENERAL) HISTORY Type Description Date Medical History high cholesterol Medical History athritis Medical History hypothyroid Surgical History No Surgical history information Goals Section No Information Health Concerns No Information MEDICAL EQUIPMENT No Information MENTAL STATUS No Information FUNCTIONAL STATUS No Information ASSESSMENTS Encounter Date Diagnosis Assessment Notes Treatment Notes Treatm ent Clinical Notes May, IFG (impaired fasting glucose) (ICD-10 - R73.01) Patient will have evaluation with A1c the next time labs are drawn. Patient was counseled about starting low carbohydrate, low sugar diet. May, White coat syndrome without diagnosis of hypertension (ICD-10 - R03.0) As majority of patient's blood pressures are normal we will not add any medication at this time. Patient was counseled to continue to monitor blood pressure at home. May, Acquired hypothyroidism (ICD-10 - E03.9) Level stable, continue current medication May, Dyslipidemia (ICD-10 - E78.5) Stable, continue current medication PLAN OF TREATMENT Medication Medication Name Sig Start Date Stop Date Crestor 40 MG 1 tablet Orally Once a day Synthroid 50 MCG 1 tablet in the morning on an empty stom ach Orally Once a day Treatment Notes Assessment Notes Clinical Notes IFG (impaired fasting glucose) Patient w ill have evaluation with A1c the next time labs are drawn. Patient was counseled about starting low carbohydrate, low sugar diet. White coat syndrome without diagnosis of hypertension As majority of patient's blood pressures are normal we will not add any medication at this time. Patient was counseled to continue to monitor blood pressure at home. Acquired hypothyroidism Level stable, co ntinue current medication Dyslipidemia Stable, continue cur rent medication Next Appt Details as scheduled Reason: Provider Name:Elsy Heart, 2021-07 08:30:00 AM, [address], , [place], [address], Insurance Providers Payer Name Payer Address Payer Phone Insured Name Patient Relati onship to Insured Coverage Start Date Coverage End Date [facility] [address] [address] [facility] [phone] SURY MELENDEZ self
--- OUTSIDE RECORDS SUMMARY | 2021-08-11 08:24 | CCD ---
Author Author [facility] Organization [facility] Address Unknown Phone Unavailable Care Team Providers Care Crotch Piece Baster Name Role Phone Elsy Heart Unavailable PROBLEMS Type Condition ICD9-CM Code [id number] Code Onset Dates Condition S tatus W/U Status Risk SNOMED Code Notes Problem Acquired hypothyroidism E03.9 Active confirmed 886402783 Problem Dyslipidemia E78.5 Active confirmed 7145415 07 Problem Other chronic pain G89.29 Active confirmed 8 7828354 ALLERGIES No Known Allergies ENCOUNTERS from 1950 to 2021-06-22 Encounter Location Date Provider Diagnosis [address] [phone] [place] [address] May, Elsy Heart Preoperative clearance Z01.818 IMMUNIZATIONS No Information SOCIAL HISTORY Tobacco Use: Social History Observation Description Date Details (start date - stop date) Never Smoker Sex Assigned At : Social History Observation Description Sex Assigned At Unknown Audit Question Answer Notes Total Score: 8 Interpretation: Simple Advice Language: Question Answer Notes Languages spoken: Wolof Advent: Question Answer Notes Advent No mosque beliefs that would impact health care. Sexual [...] Notes Start Da te End Date Status Vitamin C 500 MG as directed Orally Active Aleve 220 MG 1 tablet with food or milk as needed Orally every 12 hrs Active Multivitamin Adult - 1 tablet Orally Once a day for 30 day(s) Active Aspirin 81 81 MG 1 tablet Orally Once a day Not-Taking Tylenol Extra Strength 500 MG 1 tablet as needed Orally every 6 hrs Active Pjntnz-Uuqhpvpzd-Qxqlic-Hyal - as directed Orally Active Synthroid 50 MCG 1 tablet in the morning on a n empty stomach Orally Once a day for 30 day(s) Active Crestor 40 MG 1 tablet Orally Once a day Active Move Free Ultra Joint Health 40-5-3.3 MG as directed Orally Active PROCEDURES No Information RESULTS No Results REASON FOR VISIT pre op orders MEDICAL (GENERAL) HISTORY Type Description Date Medical History high cholesterol Medical History athritis Medical History hypothyroid Surgical History No know Surgical history Goals Section No Information Health Concerns No Information MEDICAL EQUIPMENT No Information MENTAL STATUS No Information FUNCTIONAL STATUS No Information ASSESSMENTS Encounter Date Diagnosis Assessment Notes Treatment Notes Treatm ent Clinical Notes May, Preoperative clearance (ICD-10 - Z01.818) PLAN OF TREATMENT Future Test Test Name Order Date CBC with Differential [id number] Next Appt Details Provider Name:Elsy Heart, 2021-05 10:15:00 AM, [address], , [place], [address], Provider Name:Elsy Heart 2021-07 08:30:00 AM, [address], , [place], [address], Insurance Providers Payer Name Payer Address Payer Phone Insured Name Patient Relati onship to Insured Coverage Start Date Coverage End Date [facility] [address] [facility] [phone] SURY MELENDEZ self
--- OUTSIDE RECORDS SUMMARY | 2021-08-11 08:24 | CCD ---
Author Author [facility] Organization [facility] Address Unknown Phone Unavailable Care Team Providers Care Airline Customer Service Agent Name Role Phone Elsy Heart Unavailable PROBLEMS Type Condition ICD9-CM Code AZE48-PR Code Onset Dates Condition S tatus W/U Status Risk SNOMED Code Notes Problem Acquired hypothyroidism E03.9 Active confirmed 501372307 Problem Dyslipidemia E78.5 Active confirmed 6232659 07 Problem Other chronic pain G89.29 Active confirmed 8 1584304 ALLERGIES No Known Allergies ENCOUNTERS from 1950 to 2021-06-08 Encounter Location Date Provider Diagnosis [address] [phone] [place] [address] May, Elsy Heart Right hip pain M25.551 ; Elevated BP wit hout diagnosis of hypertension R03.0 ; Dyslipidemia E78.5 and Acquired hypothyroidism E03.9 IMMUNIZATIONS No Information SOCIAL HISTORY Tobacco Use: Social History Observation Description Date Details (start date - stop date) Never Smoker Sex Assigned At : Social History Observation Description Sex Assigned At Unknown Audit Question Answer Notes Total Score: 8 Interpretation: Simple Advice Language: Question Answer Notes Languages spoken: Turkish Mormon: Question Answer Notes Mormon No taoist beliefs that would impact health care. Sexual [...] smoker REASON FOR REFERRAL from 1950 to 2021-06-08 Reason 71-year-old male with right hip pain. Please evaluate and treat Diagnosis 1 Right hip pain (M25.551) Referral Organization [facility] Referring Provider First Name Elsy Referring Provider Last Name Una Referring Provider Specialty Family Medicine Referred Provider [facility] laura Referred Provider Specialty Physical Therapist Referral Priority Routine General Notes Krystal Valladares LPN 06/06/20 5:09:41 PM > referral faxed Reason 71-year-old male with right hip pain. Please evaluate and treat Diagnosis 1 Right hip pain (M25.551) Referral Organization [facility] Referring Provider First Name Elsy Referring Provider Last Name Una Referring Provider Specialty Family Medicine Referred Provider Nolan PATEL Referred Provider Specialty Orthopedic Surgery Referral Priority Routine Referral Appointment Date 2021-06-10 General Notes Krystal Valladares LPN 06/06/20 5:10:39 PM > Referral faxed VITAL SIGNS Weight 201 lbs May, Height 5'6" in May, BMI 32.44 kg/m2 May, Heart Rate 74 /min May, Respiratory Rate 18 /min May, Temperature 97.6 degrees Fahrenheit May, Oximetry 96%RA May, Blood pressure systolic 168 mm Hg May, Blood pressure diastolic 100 mm Hg May, MEDICATIONS Medication SIG (Take, [...] as needed Orally every 6 hrs Active Ozojfm-Faxvwdlkf-Cklgvk-Hyal - as directed Orally Active Synthroid 50 MCG 1 tablet in the morning on a n empty stomach Orally Once a day for 30 day(s) Active Crestor 40 MG 1 tablet Orally Once a day Active Move Free Ultra Joint Health 40-5-3.3 MG as directed Orally Active PROCEDURES No Information RESULTS Component Value Reference Range Comprehensive Metabolic Profile (CMP) Reviewed date:06/06/2021 17:13:58 Interpretation: Performing Lab:[facility] [address] [facility] [address] , ,[place] [address] GLUCOSE, FASTING 109 70-100 BLOOD UREA NITROGEN 11 7-18 CREATININE FOR GFR 1.07 0.70-1.30 GLOMERULAR FILTRATION RATE > 60.0 >49 SODIUM LEVEL 141 136-145 POTASSIUM SERUM 5.0 3.5-5.1 CHLORIDE LEVEL 110 98-107 CARBON DIOXIDE LEVEL 27 21-32 CALCIUM LEVEL 8.6 8.8-10.2 AST/SGOT 30 7-37 ALT/SGPT 46 12-78 ALKALINE PHOSPHATASE 74 45-117 BILIRUBIN,TOTAL 1.2 0.2-1.0 TOTAL PROTEIN 6.7 6.4-8.2 ALBUMIN 4.3 3.2-5.2 ALBUMIN/GLOBULIN RATIO 1.8 FREE T4 Reviewed date:06/06/2021 17:14:04 Interpretation: Performing Lab:[facility] [address] [facility] [address] , ,[place] [address] FREE T4 0.91 0.76-1.46 LIPID PANEL (CARDIAC RISK) Reviewed date:06/06/2021 17:14:01 Interpretation: Performing Lab:[facility] [address] [facility] [address] , ,[place] [address] TRIGLYCERIDES LEVEL 93 <150 CHOLESTEROL LEVEL 136 <200 HDL CHOLESTEROL 83 >40 LDL CHOLESTEROL 34 <100 NON-HDL-C 53 CHOLESTEROL RISK RATIO 1.638 <5 TSH Reviewed date:06/06/2021 17:14:06 Interpretation: Performing Lab:[facility] [address] [facility] [address] , ,[place] [address] THYROID STIMULATING HORMONE 1.850 0.358-3.740 REASON FOR VISIT Transfer of care MEDICAL (GENERAL) HISTORY Type Description Date Medical History high cholesterol Medical History athritis Medical History hypothyroid Surgical History No know Surgical history Goals Section No Information Health Concerns No Information MEDICAL EQUIPMENT No Information MENTAL STATUS No Information FUNCTIONAL STATUS No Information ASSESSMENTS Encounter Date Diagnosis Assessment Notes Treatment Notes Treatm ent Clinical Notes May, Right hip pain (ICD-10 - M25.551) Patient will be referred to physical therapy, orthopedic surgery for further evaluation. May, Elevated BP without diagnosis of hypertension (I CD-10 - R03.0) Patient with elevated blood pressure. He does not currently monitor blood pressure. Patient was advised to start monitoring blood pressure at home daily, to keep a log. Follow-up in 2 weeks for reevaluation of blood pressure. Metabolic profile to obtain baseline electrolytes, kidney function. May, Dyslipidemia (ICD-10 - E78.5) Monitor with lipids May, Acquired hypothyroidism (ICD-10 - E03.9) Monitor with TSH and free T4 PLAN OF TREATMENT Treatment Notes Assessment Notes Clinical Notes Right hip pain Patient will be refe rred to physical therapy, orthopedic surgery for further evaluation. Elevated BP without diagnosis of hypertension Patient with elevated blood pressure. He does not currently monitor blood pressure. Patient was advised to start monitoring blood pressure at home daily, to keep a log. Follow-up in 2 weeks for reevaluation of blood pressure. Metabolic profile to obtain baseline electrolytes, kidney function. Dyslipidemia Monitor with lipids Acquired hypothyroidism Monitor with TSH and free T4 Referrals Referral Date Details 71-year-old male with right hip pain. Please evaluate and treat, [facility] 2021-06-10 2021-06-10, 71-year-old male with right hip pain. Please evaluate and treat, Nolan PATEL Next Appt Details 2 Weeks: follow up blood pressure (doubl e book if needed) Reason: Provider Name:Elsy Heart, 2021-05 10:15:00 AM, [address], , [place], [address], Insurance Providers Payer Name Payer Address Payer Phone Insured Name Patient Relati onship to Insured Coverage Start Date Coverage End Date [facility] [address] [address] [facility] [address] [phone] SURY MELENDEZ self
[2021-08-11] MEDS ORDERED: LIDOCAINE 2% 100MG/5ML SDV (FOR ANES.) As Ordered ONE (09:34)
[2021-08-11] MEDS ORDERED: ROCURONIUM BROMIDE 50 MG/5 ML VIAL As Ordered ONE (09:34)
[2021-08-11] MEDS ORDERED: propofoL 200 MG/20 ML VIAL As Ordered ONE (09:34)
[2021-08-11] MEDS ORDERED: fentaNYL 250 MCG/5 ML INJECTION (J3010) As Ordered ONE (09:34)
[2021-08-11] MEDS ORDERED: MIDAZOLAM INJ 2MG/2ML VIAL (J2250 PER 1MG) As Ordered ONE (09:35)
[2021-08-11] MEDS ORDERED: TRANEXAMIC ACID 100 MG/ML 10ML VIAL As Ordered ONE (10:14)
[2021-08-11] MEDS ORDERED: ONDANSETRON 4MG/2ML VIAL As Ordered ONE (11:52)
[2021-08-11] MEDS ORDERED: SUGAMMADEX SODIUM 500 MG/5 ML VIAL (BRIDION) As Ordered ONE (11:52)
[2021-08-11] MEDS ORDERED: ACETAMINOPHEN 1000MG 100ML IV BTL (OFIRMEV) (J0131 PER 10MG) As Ordered ONE (11:52)
[2021-08-11] MEDS ORDERED: KETOROLAC 60MG 2ML VIAL As Ordered ONE (11:52)
[2021-08-11] MEDS ORDERED: HYDROmorphone HCL 2 MG/ML 1ML VIAL As Ordered ONE (11:52)
[2021-08-11] MEDS ORDERED: PHENYLephrine 500MCG 5ML (100MCG/ML) SYRINGE As Ordered ONE (12:36)
[2021-08-11] MEDS ORDERED: HYDROMORPHONE HCL 0.5 MG/ 0.5 ML SYRINGE (J1170 PER 1) IV PRN (13:25)
[2021-08-11] MEDS ORDERED: LR 1,000 ML IV SCH ×2 (13:25→18:30)
[2021-08-11] MEDS ORDERED: ONDANSETRON 4MG/2ML VIAL IV PRN ×2 (13:25→18:25)
[2021-08-11] MEDS ORDERED: fentaNYL 100 MCG/2 ML INJECTION (J3010) IV PRN (13:25)
[2021-08-11] MEDS ORDERED: oxyCODONE 5MG TAB PO PRN ×2 (13:25→18:30)
[2021-08-11 14:25] LABS: HEMOGLOBIN 14.5 g/dl (13.5-17.5); MEAN CORPUSCULAR HEMOGLOBIN 33.3 pg (27.0-33.0); MEAN CORPUSCULAR HGB CONC 33.7 g/dl (32.0-36.5); MEAN CORPUSCULAR VOLUME 98.9 fl (80.0-96.0); PLATELET COUNT, AUTOMATED 141 10^3/uL (150-450); RED BLOOD COUNT 4.35 10^6/uL (4.30-6.10); WHITE BLOOD COUNT 12.6 10^3/uL (4.0-10.0)
--- NOTE | 2021-08-11 14:28 | REP ---
INDICATION: order reads "low set AP pelvis to include prosthesis" COMPARISON: None. TECHNIQUE: Frontal view of the pelvis. FINDINGS: Visualized portions of the pelvis are intact and relatively normal. Right hip replacement appears normal in position and appearance. Overlying residual postsurgical changes to the soft tissues are suggested. Left hip is normal. IMPRESSION: Status post right hip replacement with normal appearance and position to the prosthetic hardware. Residual soft tissue postsurgical changes noted. <Electronically signed by Shilo Pedroza > 08/11/21 [id number]
--- NOTE | 2021-08-11 14:48 | ROOPDOC ---
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 COMPLICATIONS: No known REMARKS: Patient was seen in the preoperative area and the right lower extremity was checked and found to be grossly neurovascularly intact. The consent was reviewed. Prior to surgical intervention the [facility] plan was reviewed and adjusted.. FINDINGS: Right hip osteoarthritis with coxa magna and dysplasia SPECIMENS REMOVED: None PROCEDURE NOTE: Components: Lipscomb Trident 2 titanium acetabular shell size 56 mm Accolade 2 size #6 femoral stem MDM liner 28 mm inner diameter Ceramic femoral head 28 mm standard 0 DESCRIPTION OF PROCEDURE: The patient was brought to the operating room and a surgical pause was carried out. The patient was then positioned for a spinal anesthetic which was carried out. The patient was then positioned in the left lateral decubitus position for the right total hip arthroplasty. Appropriate padding was carried out including an axillary roll. Patient was secured with the Stulberg positioning system. The patient and underwent a chlorhexidine wash of the right lower extremity followed by 2 times alcohol wash and then 1 hydrogen peroxide wash. 2 standard sterile chlorhexidine preps were carried out utilizing the ones. The patient was then prepped and draped in the standard fashion. A surgical pause was carried out and a surgical safety checklist was completed. The modified Norton approach was utilized for the lateral skin incision. Skin and subcutaneous tissues were incised down to the fascia. The fascia was split. This was retracted to expose the abductors. The abductors and capsule were elevated using electrocautery in a single layer. Hohmann retractors were placed to help with visualization. Once the proximal femur had been skeletonized the soft tissue, the iliac crest array was placed using 3 pins for the Damion system. The checkpoint for the greater trochanter was then placed. The right lower extremity was then registered. The hip was dislocated. The labrum was removed with electrocautery and other soft tissues to help with exposure. Electrocautery was used for hemostasis throughout the procedure. The acetabular checkpoint was then placed. The pelvis and acetabular cup was then registered using the Damion robot. The robot was then brought in for appropriate reaming as per the preoperative plan. A 56 mm cup was reamed. Some of the reamings were placed in the fovea of the acetabulum for autologous bone grafting. Additional soft tissue was removed from the acetabulum using electrocautery. The Damion robot was then used to impact the cup at the preplanned version and abduction angle. This was seated appropriately. The dual mobility liner was then impacted without difficulty and check to ensure it was secured. The patient then had the leg placed in the bag with a femoral elevator and a Lorenzo elevating the proximal femur. Electrocautery was used to free up soft tissue at the posterior lateral aspect of the femur. A rongeur and then a box osteotome were used to open up the femoral canal followed by the canal finder. Broaching then occurred up to a size 5. Trialing occurred with this with both 1 32 and 1 27 neck offsets. There is still considerable shuck so broaching went back up to a size 6, which appeared to be the most appropriate. This was trialed with the standard head and neck and found to have appropriate tensioning, leg length and offset as well as a good stable range of motion. This was trialed and the leg was taken through stable range of motion without any risk of dislocation being noted. The final components were assembled. The stem was inserted. The trunnion was cleansed with normal sterile saline and dried and then the dual mobility had was impacted. This was then reduced and taken through a full stable range of motion. Wound was irrigated and tranexamic acid was allowed to sit for 3 minutes. The wound also had Betadine soaking in it. The layered closure then occurred with #1 Vicryl closure deep followed by #1 Vicryl and strata fix for the abductors and then #1 Vicryl and strata fix for the fascia. The subcutaneous layer was closed with interrupted #1 Vicryl followed by running 2.0 Vicryl followed by three-point 0 Monocryl. Normal sterile saline and Betadine washes were carried out in between layers. The stab wounds for the iliac crest array were irrigated with normal sterile saline and painted with Betadine before closure with three-point 0 Monocryl. The wound was sealed with Steri-Strips followed by Telfa and Tegaderm for the iliac crest dressing and a Mepilex dressing for the Norton incision. The patient was taken to the recovery room stable with no known complications The patient will be admitted to the hospitalist service. Anticipate discharge postop day 1 if there are no issues. Physical therapy to mobilize. Discharge Instructions Total Hip Arthroplasty 1. Pain: You may take oxycodone as prescribed for pain. Supplement with Naproxen and Tylenol as needed. Ice pack to operative hip as tolerated. 2. Wound care: Remove lateral head dressing on postop day 7. The iliac crest pin site dressing can be changed every 3 days with Telfa and Tegaderm. call [phone] with any questions or concerns. Hygiene: The patient may shower. No tub baths. Check dressing seal prior to bathing. 3. Activity: WBAT right lower extremity. Front wheeled walker versus crutches for ambulation. Fall precautions. Anterolateral hip precautions (NO figure of 4/crossing legs, combined external rotation/extension, combined internal rotation/abduction). 4. Driving: No driving until cleared by your surgeon. Do not drive if taking narcotic pain medications as these may make you drowsy. 5. DVT Prophylaxis: Continue taking aspirin 81 mg p.o. twice daily as prescribed for the prevention of blood clots. Ankle pumps every 1 hour while awake. STEPHEN hose at all times for 1 month after surgery. May remove for hygiene and wound care. 6. Placement: Plan is to discharge patient to home with home health including nursing and physical therapy. 7. Surgeon Follow-up: The patient is scheduled to be seen in Dr. He's office 2 weeks post op with xrays. 8. Primary care Follow-up: Please see your primary care provider in the next 2 t o 5 weeks for general medical re-evaluation and medication review. 9. Labs: CBC without differential to be drawn on postop day 3 with results to PCP and please fax to [phone]. 10. Please contact [facility] if you have any questions or concerns at [phone]. NE HE MD Aug 11, 2021 14:48
[2021-08-11 15:00] LABS: ALBUMIN 3.6 GM/DL (3.2-5.2); ALT/SGPT 38 U/L (12-78); BILIRUBIN,TOTAL 1.1 MG/DL (0.2-1.0); BLOOD UREA NITROGEN 15 MG/DL (7-18); CALCIUM LEVEL 8.7 MG/DL (8.8-10.2); CARBON DIOXIDE LEVEL 25 MEQ/L (21-32); CHLORIDE LEVEL 111 MEQ/L (98-107); GLOMERULAR FILTRATION RATE > 60.0 (>49); GLUCOSE, FASTING 158 MG/DL (70-100); POTASSIUM SERUM 4.1 MEQ/L (3.5-5.1); SODIUM LEVEL 141 MEQ/L (136-145); TOTAL PROTEIN 5.8 GM/DL (6.4-8.2)
[2021-08-11 17:30] VITALS: BP 137/84
[2021-08-11 18:00] VITALS: BP 134/86
--- NOTE | 2021-08-11 18:28 | HPEPDOC ---
General Date of Admission August 11, 2021 Date of Service: Aug 11, 2021 Chief Complaint The patient is a 71-year-old male admitted with a reason for visit of Right Hip Osteoarthritis. Source: Patient History of Present Illness Mr. Buenrostro is a 71-year-old male with hypothyroidism who is here for elective right hip total arthroplasty. Dr. Quintana took patient to the OR on 08/11/2021. Patient was seen on the floor postoperatively. When I saw patient, he was feeling well. Denied any fever or chills, chest pain, dyspnea, abdominal pain, diarrhea, or dysuria. Reported slight nausea and tingling of his hands and feet. Otherwise, he just feels sleepy. Patient is saturating well on 2 L. He tells me that he is not normally on oxygen and denies any history of JAMES. Jet demarco will be admitted for postop monitoring Home Medications Scheduled Ascorbic Acid (Vitamin C) 500 Mg Capsule, 1 CAP PO DAILY, (Reported) Glucos Sul 2Kcl/MSM/Chond/C/Mn (Glucosamine Chondroitin Cap) 1 Each Capsule, 2 EACH PO DAILY, (Reported) Levothyroxine Sodium (Levo-T) 25 Mcg Tablet, 25 MCG PO DAILY, (Reported) Multivitamin (Multi-Vitamin Daily) 1 Each Tablet, 1 TAB PO DAILY, (Reported) Rosuvastatin Calcium (Rosuvastatin Calcium) 40 Mg Tablet, 40 MG PO DAILY, (Reported) Allergies Coded Allergies: No Known Allergies (Unverified , 08/11/21) Past Medical History Medical History 1. Hyperlipidemia 2. Arthritis 3. Hypothyroidism Surgical History 1. Right total hip arthroplasty on 08/11/2021 Family History Father: at the age of 8888 years old. History of malignant neoplasm Social History * Smoker: Denies Alcohol: other (Drinks about 1 case of beer a week) Drugs: denies A-FIB/CHADSVASC A-FIB History Current/History of A-Fib/PAF?: No Review of Systems Constitutional: Denies: Chills, Fever Eyes: Denies: Vision change ENT: Denies: Sore Throat Skin: Denies: Rash Pulmonary: Denies: Dyspnea, Cough Cardiovascular: Denies: Chest Pain Gastrointestinal: Reports: Nausea (Slight); Denies: Abdominal Pain, Diarrhea Genitourinary: Denies: Dysuria Hematologic: Denies: Bruising Neurological: Reports: Other Symptoms Psych: Denies: Anxiety, Depression (Postop tingling in his hands and feet) Physical Examination General Exam: Positive: Alert, Cooperative, No Acute Distress Eye Exam: Positive: EOMI; Negative: Sclera icteric ENT Exam: Positive: Atraumatic Neck Exam: Positive: Supple Chest Exam: Positive: Clear to auscultation Heart Exam: Positive: Rate Normal, Regular Rhythm Abdomen Exam: Positive: Normal bowel sounds, Soft; Negative: Tenderness Extremity Exam: Negative: Edema Neuro Exam: Positive: Normal Speech, Cranial Nerves 3-12 NL Psych Exam: Positive: Mental status NL, Mood NL Vital Signs Vital Signs Date Time Temp Pulse Resp B/P (MAP) Pulse Ox O2 Delivery O2 Flow Rate FiO2 08/11/21 18:00 96.3 90 14 134/86 (102) 98 08/11/21 17:16 Nasal Cannula 3.0 Laboratory Data Labs 24H Laboratory Tests 2 08/11/21 14:14: Nucleated Red Blood Cells % (auto) 0.0, Anion Gap 5L, Glomerular Filtration Rate > 60.0, Calcium Level 8.7L, Total Bilirubin 1.1H, Aspartate Amino Transf (AST/SGOT) 23, Alanine Aminotransferase (ALT/SGPT) 38, Alkaline Phosphatase 63, Total Protein 5.8L, Albumin 3.6, Albumin/Globulin Ratio 1.6 CBC/BMP Laboratory Tests 08/11/21 14:14 Assessment/Plan Mr. Buenrostro is a 71-year-old male with hypothyroidism who is here for elective right hip total arthroplasty. Patient has right hip osteoarthritis of which he is here for elective surgery. Will order PT and OT for tomorrow. Plan / VTE VTE Prophylaxis Ordered?: Yes Plan Plan 1. Right hip osteoarthritis status post total arthroplasty Patient was taken to the OR on 08/11/[address] Quintana PT and OT DVT prophylaxis per orthopedic surgery, aspirin 81 mg twice daily 2. Hypothyroidism Continue levothyroxine 3. Hyperlipidemia Continue rosuvastatin 4. DVT prophylaxis Per orthopedic surgery, aspirin 81 mg twice daily Disposition: Pending PT and OT evaluation CLINT MAYORGA DO Aug 11, 2021 18:28
[2021-08-11] MEDS ORDERED: traMADol 50 MG TAB PO PRN (18:30)
[2021-08-11] MEDS ORDERED: SENNA 8.6 MG TAB (SENOKOT) PO PRN (18:30)
[2021-08-11] MEDS ORDERED: NS 500 ML IV ONE (18:30)
[2021-08-11] MEDS: ACETAMINOPHEN TAB 650MG DOSE (2X325MG) PO SCH ×2 (18:47→23:53)
[2021-08-11] MEDS: FOLIC ACID 1 MG TAB PO SCH (18:47)
[2021-08-11] MEDS: THIAMINE 100 MG TAB PO SCH (18:47)
[2021-08-11 19:00] VITALS: BP 131/85
[2021-08-11 20:59] VITALS: BP_SYST 11; BP_SYST 111; BP_DIAS 86
[2021-08-11] MEDS ORDERED: ROSUVASTATIN 10 MG TAB (CRESTOR) PO SCH (21:00)
[2021-08-11] MEDS: ceFAZolin SOD 2 GM in IV 1 EA IV SCH (22:00)
[2021-08-11] MEDS: ASPIRIN 81 MG CHEW TABLET PO SCH (22:01)
[2021-08-11] MEDS: DOCUSATE SODIUM 100MG CAPSULE PO SCH (22:01)
[2021-08-11] MEDS: NAPROXEN 250 MG TAB PO SCH (22:03)
[2021-08-11] MEDS: oxyCODONE 5MG TAB PO PRN (22:19)
[2021-08-12 05:04] VITALS: BP 105/74
[2021-08-12] MEDS: ceFAZolin SOD 2 GM in IV 1 EA IV SCH (05:05)
[2021-08-12] MEDS: oxyCODONE 5MG TAB PO PRN (05:06)
[2021-08-12] MEDS: ACETAMINOPHEN TAB 650MG DOSE (2X325MG) PO SCH ×2 (05:06→13:05)
[2021-08-12] MEDS ORDERED: LEVOTHYROXINE 25MCG TABLET (0.025MG) PO SCH (06:00)
[2021-08-12 06:31] LABS: MEAN CORPUSCULAR HGB CONC 33.9 g/dl (32.0-36.5); MEAN CORPUSCULAR VOLUME 97.3 fl (80.0-96.0); PLATELET COUNT, AUTOMATED 130 10^3/uL (150-450); WHITE BLOOD COUNT 14.5 10^3/uL (4.0-10.0)
[2021-08-12 06:35] LABS: HEMOGLOBIN 12.2 g/dl (13.5-17.5)
[2021-08-12 06:59] LABS: BLOOD UREA NITROGEN 23 MG/DL (7-18); CALCIUM LEVEL 8.1 MG/DL (8.8-10.2); CARBON DIOXIDE LEVEL 22 MEQ/L (21-32); CHLORIDE LEVEL 106 MEQ/L (98-107); CREATININE FOR GFR 1.23 MG/DL (0.70-1.30); GLOMERULAR FILTRATION RATE > 60.0 (>49); GLUCOSE, FASTING 135 MG/DL (70-100); POTASSIUM SERUM 4.5 MEQ/L (3.5-5.1); SODIUM LEVEL 138 MEQ/L (136-145)
[2021-08-12] MEDS ORDERED: FERROUS SULFATE 325MG TAB PO SCH (09:00)
[2021-08-12] MEDS ORDERED: MULTIVITAMINS/MINERALS THERAP 1 TAB PO SCH (09:00)
[2021-08-12] MEDS ORDERED: ASCORBIC ACID 500 MG TAB PO SCH (09:00)
[2021-08-12] MEDS: ASPIRIN 81 MG CHEW TABLET PO SCH (09:52)
[2021-08-12] MEDS: FOLIC ACID 1 MG TAB PO SCH (09:52)
[2021-08-12] MEDS: NAPROXEN 250 MG TAB PO SCH (09:52)
[2021-08-12] MEDS: DOCUSATE SODIUM 100MG CAPSULE PO SCH (09:52)
[2021-08-12] MEDS: THIAMINE 100 MG TAB PO SCH (09:52)
[2021-08-12] MEDS ORDERED: OXYC-517 PO (11:52)
[2021-08-12] MEDS ORDERED: FOLI1TAB11 PO (11:52)
[2021-08-12] MEDS ORDERED: DOCU100C16 PO (11:52)
[2021-08-12] MEDS ORDERED: THIA100TA PO (11:52)
[2021-08-12] MEDS ORDERED: ASPI81CH8 PO (11:52)
[2021-08-12] MEDS ORDERED: FERR1TAB8 PO (11:52)
--- NOTE | 2021-08-12 13:56 | DS.PDOC ---
Discharge Summary General Date of Admission 08/11/2021 Date of Discharge 08/12/2021 Attending Physician: ANTIONETTE ALBERT MD Specialist/Consultants [facility] Discharge Summary PROCEDURES PERFORMED DURING STAY: Elective R total hip arthroplasty ADMITTING DIAGNOSES: Right Hip Osteoarthritis. DISCHARGE DIAGNOSES: Right Hip Osteoarthritis s/p Right total hip arthroplasty on 08/11/2021 Hyperlipidemia Arthritis Hypothyroidism COMPLICATIONS/CHIEF COMPLAINT: Right Hip Osteoarthritis. HISTORY OF PRESENT ILLNESS: 71-year-old M who presented here for elective right hip total arthroplasty. Dr. Quintana took patient to the OR on 08/11/2021. HOSPITAL COURSE: Post op he did very well. He denied any fever or chills, chest pain, dyspnea, abdominal pain, diarrhea, or dysuria and his course was uncomplicated. He did well with PT/OT and he pain was well controlled with PRN oxycodone and he is now being discharged home with close PCP follow up and orthopedics follow up. DISCHARGE MEDICATIONS: Please see below. ALLERGIES: Please see below. PHYSICAL EXAMINATION ON DISCHARGE: VITAL SIGNS: Please see below. General: Alert, Cooperative, No Acute Distress Eyes: EOMI, anicteric, MMM ENT: Atraumatic Neck: Supple Chest: Clear to auscultation Heart: Rate Normal, Regular Rhythm, no m/r/g Abdomen: Normal bowel sounds, Soft, NTND Extremities: no edema, R hip with dressing in place Neuro: Normal Speech, Cranial Nerves 3-12 NL Psych: Mental status NL, Mood NL, AOx3 LABORATORY DATA: Please see below. IMAGING: R hip XR: Visualized portions of the pelvis are intact and relatively normal. Right hip replacement appears normal in position and appearance. Overlying residual postsurgical changes to the soft tissues are suggested. Left hip is normal. IMPRESSION: Status post right hip replacement with normal appearance and position to the prosthetic hardware. Residual soft tissue postsurgical changes noted. PROGNOSIS: Good ACTIVITY: As tolerated DIET: regular DISCHARGE PLAN: Home with close PCP follow up and ortho follow up DISPOSITION: Home DISCHARGE INSTRUCTIONS: Home with close PCP follow up and ortho follow up ITEMS TO FOLLOWUP ON ON OUTPATIENT: s/p R hip arthroplasty DISCHARGE CONDITION: Stable TIME SPENT ON DISCHARGE: 34 minutes. Vital Signs/I&Os Vital Signs Date Time Temp Pulse Resp B/P (MAP) Pulse Ox O2 Delivery O2 Flow Rate FiO2 08/12/21 09:51 18 Room Air 08/12/21 05:04 98.7 87 105/74 (84) 93 08/11/21 20:59 2.0 I&O- Last 24 Hours up to 6 AM 08/12/21 06:00 Intake Total 3370 ml Output Total 850 ml Balance 2520 ml Laboratory Data Labs 24H Laboratory Tests 2 08/11/21 14:14: Nucleated Red Blood Cells % (auto) 0.0, Anion Gap 5L, Glomerular Filtration Rate > 60.0, Calcium Level 8.7L, Total Bilirubin 1.1H, Aspartate Amino Transf (AST/SGOT) 23, Alanine Aminotransferase (ALT/SGPT) 38, Alkaline Phosphatase 63, Total Protein 5.8L, Albumin 3.6, Albumin/Globulin Ratio 1.6 08/12/21 06:00: Nucleated Red Blood Cells % (auto) 0.0, Anion Gap 10, Glomerular Filtration Rate > 60.0, Calcium Level 8.1L CBC/BMP Laboratory Tests 08/11/21 14:14 08/12/21 06:00 Discharge Medications Scheduled Ascorbic Acid (Vitamin C) 500 Mg Capsule, 1 CAP PO DAILY, (Reported) Aspirin (Children's Aspirin) 81 Mg Tab.chew, 81 MG PO BID Docusate Sodium (Docusate Sodium) 100 Mg Capsule, 100 MG PO BID Ferrous Sulfate (Ferrous Sulfate) 325 Mg Tablet, 325 MG PO DAILY Folic Acid (Folic Acid) 1 Mg Tablet, 1 MG PO DAILY Glucos Sul 2Kcl/MSM/Chond/C/Mn (Glucosamine Chondroitin Cap) 1 Each Capsule, 2 EACH PO DAILY, (Reported) Levothyroxine Sodium (Levo-T) 25 Mcg Tablet, 25 MCG PO DAILY, (Reported) Multivitamin (Multi-Vitamin Daily) 1 Each Tablet, 1 TAB PO DAILY, (Reported) Rosuvastatin Calcium (Rosuvastatin Calcium) 40 Mg Tablet, 40 MG PO DAILY, (Reported) Thiamine Hcl (Vitamin B-1) 100 Mg Tablet, 100 MG PO DAILY Scheduled PRN Oxycodone HCl (Oxycodone HCl) 5 Mg Tablet, 5 MG PO Q4HP PRN for SEVERE PAIN (PS 8-10) Allergies Coded Allergies: No Known Allergies (Unverified , 08/11/21) ANTIONETTE ALBERT MD Aug 12, 2021 13:56
--- OUTSIDE RECORDS SUMMARY | 2021-09-05 08:11 | CCD | Continuity of Care Document ---
Author Author Rayray HE MD Organization Unknown Address [address] [place] [address] Phone [phone] Care Team Providers Care Reconditioning Associate Name Role Phone AUTM Unavailable Elsy Heart D.O. AUTM [phone] Problems Description No Information Available Social History Type Date Description Comments Sex Unknown ETOH Use 4 A Day beer Tobacco Use Start: Unknown Denies Smoking Recreational Drug Use Denies Drug Use Smoking Status Reviewed: 08/22/21 Denies Smoking Allergies and adverse reactions Description No Known Drug Allergies Medications Active Medications SIG Qnty Indications Ordering Provide r Date Synthroid 25mcg Tablets 1 qd Unknown Rosuvastatin Calcium 40mg Tablets 1 qd Unknown Multivitamin Adults 50+ Adlt 50+ T ablets 1 by mouth every day Unknown Glucosamine Chondroitin 1500 Complex 1500Com Capsules 2 daily Unknown Vitamin C 500mg Tablets 1 a d ay Unknown Aspirin 81mg [place] Chew One Tablet By Mouth Twice A Day Unknown Docusate Sodium 100mg Capsules Take One Capsule By Mouth Twice A Day Unknown Ferosul 325(65Fe) mg Tablets Take One Tablet By Mouth Every Day Unknown Folic Acid 1mg Tablets Take One Tablet By Mouth Every Day Unknown Oxycodone HCL 5mg Tablets Take One Tablet By Mouth Every 4 Hours as Needed For Severe Pain PS 8 10 Maxim Unknown Levothyroxine Sodium 50mcg Tablets Take One Tablet By Mouth Every Day In The Morning On An Empty Stomach Unknown History Medications Bactrim DS 800-160mg Tablets 1 by mouth twice a day 20tabs Ghassan He MD 08/13/2021 - Immunizations Description No Information Available Vital Signs Date Vital Result Comment 08/22/2021 9:10am Body Temperature 97.6 F 06/10/2021 9:11am Body Temperature 98.0 F Height 67 inches 5'7" Weight 201.00 lb BMI (Body Mass Index) 31.5 kg/m2 [place] Body Weight 148 lb Weight 91.174 kg BSA (Body Surface Area) 2.03 m2 Results Test Acquired Date Facility Test Result H/L Range Note CBC W/Diff 08/17/[address] [address] [phone] WBC 7.8 K/mm3 4.0-10.0 RBC 3.62 M/mm3 Low 4.50-6.00 HGB 12.1 gm/dL Low 14.0-18.0 HCT 35.1 % Low 42.0-54.0 MCV 97.0 fl High 80-96 MCH 33.4 pg High 27.0-31.0 MCHC 34.5 g/dL 32.0-36.0 RDW 12.1 % 10.0-14.5 PLT 176 K/mm3 172-450 MPV 10.1 fl 9.0-13.0 GR% 73.1 % 50-80.0 Ig% 0.3 % High 0.0-0.2 Ly% 14.3 % Low 25.0-50.0 Mo% 9.8 % 2.0-10.0 Eo% 2.2 % 0-5.0 Ba% 0.3 % 0.0-2.0 GR# 5.7 K/mm3 2.0-8.00 Ig# 0.0 K/mm3 0.0-0.2 Ly# 1.1 K/mm3 1.0-5.0 Mo# 0.8 K/mm3 0.10-1.20 Eo# 0.2 K/mm3 0.0-0.5 Ba# 0.0 K/mm3 0.0-0.2 Procedures Date Code Description Status 08/11/2021 01796 Arthroplasty Hip Total Completed 06/10/2021 13200 Office/Outpatient New Moderate M DM 45-59 Minutes Completed Medical Devices Description No Information Available Encounters Type Date Location Provider Dx Diagnosis Office Visit 06/10/2021 9:00a [facility] Ghassan He MD 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 08/22/2021 - Ghassan He MD* Z96.641 Presence of right artificial hip joint* New Xrays:* Hip Unilateral With Pelvis 2-3 Views, RT, Ordered: 08/22/21 * New Therapy:* Physiotherapy * Comments:* Patient is doing quite well status post right total hip arthroplasty. X-ray imaging taken today looks good with no signs of complications. The patient will be evaluated by physical therapy today. We will send a for the physical therapy outpatient prescription for him for the [facility]. I will see him for follow-up in 4 weeks for reevaluation. * Follow up:* 4 weeks Functional Status Description No Information Available Mental Status Description No Information Available Referrals Refer to Reason for Referral Status Appt Date Tonny Roa M.D. Incidental finding on preop CT scan for TOTAL hip procedure IMPRESSION: 1. Osteoarthritic changes most notably affecting the right hip. 2. Incidental finding of a 1.1 cm soft tissue nodule along the left posterolateral bladder wall rule out bladder neoplasm. Recommend cystoscopy. Patient has R JASON booked for 08/11. Do not recommend any interventions with 8-12 weeks pre or postop unless urgent/emergent to decrease risk of infections. Thank you, DN Sent [facility] [address] [address] [phone]
--- OUTSIDE RECORDS SUMMARY | 2021-09-05 08:11 | CCD ---
Author Author [facility] Organization [facility] Address Unknown Phone Unavailable Care Team Providers Care Security Solutions Architect Name Role Phone Ghassan Quintana MD Unavailable [...] Unavailable Jessica Hilario MD Unavailable Unavailable Jessica iHlario MD Unavailable Unavailable Jessica Hilario MD Unavailable [...] Unavailable Unavailable Jessica Hilario MD Unavailable Unavailable Slezka Vojtech Unavailable Unavailable Slezka, Vojtech MD Unavailable Unavailable [...] is protected by Article 27-F of the [facility] Public Health law. If you continue you may have access to information: Regarding HIV / AIDS; Provided by facilities licensed or operated by the [facility] Office of Mental Health; or Provided by the [facility] Office for People With Developmental Disabilities. If such information is present, then the following [facility] mandated warning applies: This information has been [...] law may result in a fine or retirement sentence or both. A general authorization for the release of medical or other information is NOT sufficient authorization for further disc losure. Family History Family Member Name Family Member Gender Family Member Status Date o f Status Description Data Source(s) Unknown Male Problem MEDENT ([facility]) () - at age 89 Encounters Encounter Providers Location Date Indications Data Source(s ) Office Visit Attender: Ghassan Marie/Jose M/Thomas/Angelina dl 08/22/2021 09:30:00 AM EDT MEDENT ([facility]) [place] [address] [facility] [address] 08/18/2021 12:00:00 AM EDT eCW1 ([facility]) Outpatient Attender: Ghassan Quintana MD EMERGENCY ROOM-LAB REF OTH 08/17/2021 12:43:00 PM EDT - 08/17/2021 12:43:00 PM EDT [facility] Out[facility] Referrer: Jessica POOLE.BRIAN-SJP.BRIAN 07/29 01:42:42 PM EDT - 08/10/2021 03:36:[address] [facility] [place] [address] [facility] [address] 08/10/2021 12:00:00 AM EDT eCW1 ([facility]) Outpatient Attender: Jessica Hilario MDReferrer: DWAYNE SAN-SJP.BRIAN 08/08/2021 08:17:20 AM EDT - 08/08/2021 09:31:[address] [facility] [place] [address] [facility] [address] 08/04/2021 12:00:00 AM EDT eCW1 ([facility]) [place] [address] [facility] [address] 08/01/2021 12:00:00 AM EDT eCW1 ([facility]) [place] [address] [facility] [address] 06/22/2021 12:00:00 AM EDT eCW1 ([facility]) [place] [address] [facility] [address] 06/17/2021 12:00:00 AM EDT eCW1 ([facility]) Outpatient Attender: Ghassan Marie/Jose M/Thomas/Angelina reid 06/10/2021 09:00:00 AM EDT MEDENT ([facility] [place] [address] [facility] [address] 06/06/2021 12:00:00 AM EDT eCW1 ([facility]) Immunizations Vaccine Date Status Description Data Source(s) COVID-19 VACC,MRNA(MODERNA)/PF 03/21/2021 12:00:00 AM EDT completed [facility] COVID-19 VACCINE Moderna 03/21/2021 12:00:00 AM EDT completed [facility] Vaccine Series Complete: YESThis Data wa s Submitted to [facility] Via [employer]. COVID-19 VACCINE Moderna 02/17/2021 12:00:00 AM EDT completed [facility] Vaccine Series Complete: NOThis Data was Submitted to [facility] Via [employer]. COVID-19 VACC,MRNA(MODERNA)/PF 02/17/2021 12:00:00 AM EDT completed [facility] Medications Medication Brand Name Start Date Product Form Dose Route Admi nistrative Instructions Pharmacy Instructions Status Indications Reaction Description Data Source(s) Sulfamethoxazole 800 MG / Trimethoprim 160 MG Oral Tablet [B actrim] Bactrim DS 08/13/2021 12:00:00 AM EDT ORAL completed MEDENT ([facility], ) 325 mg (65 mg iron) 08/12/2021 12:00:00 AM EDT tablet 30 TAKE ONE TABLET BY MOUTH EVERY DAY TAKE ONE TABLET BY MOUTH EVERY DAY SOLD: 08/12/2021 [facility] 100 mg 08/12/2021 12:00:00 AM EDT capsule 60 TAKE ONE CAPSULE BY MOUTH TWICE A DAY TAKE ONE CAPSULE BY MOUTH TWICE A DAY SOLD: 08/12/2021 [facility] 5 mg 08/12/2021 12:00:00 AM EDT tablet 42 TAKE ONE TABLET BY MOUTH EVERY 4 HOURS NEEDED FOR SEVERE PAIN (PS 8-10) MAXIMUM DAILY DOSE = 6 TABLETS TAKE ONE TABLET BY MOUTH EVERY 4 HOURS NEEDED FOR SEVERE PAIN (PS 8-10) MAXIMUM DAILY DOSE = 6 TABLETS SOLD: 08/12/2021 [facility] 1 mg 08/12/2021 12:00:00 AM EDT tablet 30 TAKE ONE TABLET BY MOUTH EVERY DAY TAKE ONE TABLET BY MOUTH EVERY DAY SOLD: 08/12/2021 [facility] 100 mg 08/12/2021 12:00:00 AM EDT tablet 30 TAKE ONE TABLET BY MOUTH EVERY DAY TAKE ONE TABLET BY MOUTH EVERY DAY SOLD: 08/12/2021 [facility] 81 mg 08/12/2021 12:00:00 AM EDT tablet,chewable 60 CHEW ONE TABLET BY MOUTH TWICE A DAY CHEW ONE TABLET BY MOUTH TWICE A DAY SOLD: 08/12/2021 [facility] 50 mcg 08/01/2021 12:00:00 AM EDT tablet [...] type / Coverage type Policy ID Covered republican ID Covered republican's relationship to negron Policy Negron Plan Information [employer] MEDICARE [id number] [facility] 31 [id number] [employer] MED[employer]ARE [id number] [facility] [id number] SP [id number] 'S ADMINISTRATION [id number] SP [id number] SELF PAY ONLY MEDICARE SP [facility] OPTIONS [id number] SP [id number] ANSI-Medicare Part B [id number] ANSI-Medicare Part B [id number] [facility] [employer] [id number] Self [id number] [place] [id number] SP [id number] [facility] [employer] [id number] Self [id number] [employer] [id number] S [id number] Problems, Conditions, and Diagnoses Code Display Name Description Problem Type Effective Dates Data Source(s) Z00.00 Encounter for general adult medical examination without abnormal findings ENCNTR FOR GENERAL ADULT MEDICAL EXAM W/ Diagnosis 021 12:43:00 PM [facility] Z01.812 Encounter for preprocedural laboratory e xamination ENCOUNTER FOR PREPROCEDURAL LABORATORY EXAMINATION Diagnosis 08/17/2021 12:43:00 PM [facility] Z01.818 Encounter for other preprocedural examin ation ENCOUNTER FOR OTHER PREPROCEDURAL EXAMINATION Diagnosis 08/17/2021 12:43:00 PM [facility] I45.2 Bifascicular block Bifascicular block Diagnosis 01:42:[address] [facility] [place] I45.10 Unspecified right bundle-branch block Un specified right bundle-branch block Diagnosis 08/08/2021 08:17:[address] [facility] [place] Z01.810 Encounter for preprocedural cardiovascul ar examination Encounter for preprocedural cardiovascul Diagnosis 08/08/2021 08:17:[address] [facility] Z96.641 [id number] Status post right hip replacement Problem 08/18/2021 12:00:00 AM EDT eCW1 ([facility]) R03.0 Elevated blood pressure reading Elevated blood pressur e reading [id number] 08/08/2021 12:00:[address] [facility] [place] I45.2 Bifascicular block Bifascicular block [id number] 12:00:[address] [facility] [place] I45.10 Right bundle branch block Right bundle branch block [id number] 08/06/2021 12:00:[address] [facility] [place] Z01.810 Preoperative cardiovascular examination Preoperative cardiovascular examination [id number] 08/06/2021 12:00:[address] [facility] [place] I45.10 [id number] RBBB Problem 08/01/2021 12:00:00 AM ED T eCW1 ([facility]) R03.0 [id number] White coat syndrome without diagnosis of hypertension Problem 06/22/2021 12:00:00 AM EDT eC1 ([facility]) R73.01 [id number] IFG (impaired fasting glucose) Problem 06/22/2021 12:00:00 AM EDT eC1 ([facility]) E78.5 [id number] Dyslipidemia Problem 06/06/2021 12:00:00 AM EDT eCW1 ([facility]) E03.9 [id number] Acquired hypothyroidism Problem 06/06/2021 1 2:00:00 AM EDT eCW1 ([facility]) Surgeries/Procedures Procedure Description Date Indications Data Source(s) ARTHRP ACETBLR/PROX FEM PROSTC AGRFT/ALGRFT 08/11/2021 12:00:00 AM EDT MEDENT ([facility]) ECG ROUTINE ECG W/LEAST 12 LDS W/I&R <td>POCT AMB EKG</td><td>Routine</td><td>08/08/2021 9:07 AM EDT</td><td> Preoperative cardiovascular examination Right bundle branch block</td><td> </td> 08/08/2021 09:07:00 AM EDT Right bundle branch blockPreoperative cardiovascular e xamination [facility] [place] Right bundle branch block Preoperative cardiovascular examination ECG ROUTINE ECG W/LEAST 12 LDS W/I&R 08/01/2021 12:00: 00 AM EDT eCW1 ([facility]) BLOOD COUNT COMPLETE AUTO&AUTO DIFRNTL WBC COUNT <td>C BC AND DIFFERENTIAL</td><td>Routine</td><td>07/25/2021</td><td></td><td> </td> 07/25/2021 12:00:[address] [facility] [place] LIPID PANEL <td>LIPID PANEL</td><td>Rout ine</td><td>07/25/2021</td><td></td><td> </td> 07/25/2021 12:00:[address] [facility] [place] BASIC METABOLIC PANEL CALCIUM TOTAL <td>BASIC METABOLI C PANEL</td><td>Routine</td><td>07/25/2021</td><td></td><td> </td> 07/25/2021 12:00:[address] [facility] [place] OFFICE OUTPATIENT NEW 45 MINUTES 06/10/2021 12:00:00 A M EDT MEDENT ([facility], ) Results ID Date Data Source [id number] 08/17/2021 11:25:00 AM EDT MEDENT ([facility], ) Name Value Range Interpretation Code Description Data Tanya rce(s) Supporting Document(s) RBC 3.62 M/mm3 4.50-6.00 Below low normal MEDENT ( [facility], ) WBC 7.8 K/mm3 4.0-10.0 MEDENT ([facility]) HCT 35.1 % 42.0-54.0 Below low normal MEDENT ([facility]) HGB 12.1 gm/dL 14.0-18.0 Below low normal MEDENT ( [facility]) MCV 97.0 fl 80-96 Above high normal MEDENT ([facility]) RDW 12.1 % 10.0-14.5 MEDENT ([facility]) MCHC 34.5 g/dL 32.0-36.0 MEDENT ([facility]) MCH 33.4 pg 27.0-31.0 Above high normal MEDENT ([facility]) GR% 73.1 % 50-80.0 MEDENT ([facility]) PLT 176 K/mm3 172-450 MEDENT ([facility]) MPV 10.1 fl 9.0-13.0 MEDENT ([facility]) Ly% 14.3 % 25.0-50.0 Below low normal MEDENT ([facility]) Mo% 9.8 % 2.0-10.0 MEDENT ([facility]) Ig% 0.3 % 0.0-0.2 Above high normal MEDENT ([facility]) Ba% 0.3 % 0.0-2.0 MEDENT ([facility]) Eo% 2.2 % 0-5.0 MEDENT ([facility]) Ly# 1.1 K/mm3 1.0-5.0 MEDENT ([facility]) GR# 5.7 K/mm3 2.0-8.00 MEDENT ([facility]) Ig# 0.0 K/mm3 0.0-0.2 MEDENT ([facility]) Ba# 0.0 K/mm3 0.0-0.2 MEDENT ([facility]) Eo# 0.2 K/mm3 0.0-0.5 MEDENT ([facility] ) Mo# 0.8 K/mm3 0.10-1.20 MEDENT ([facility] ) ID Date Data Source [id number] 08/17/2021 01:00:00 PM EDT [facility] l FAX [phone] Name Value Range Interpretation Code Description Data Tanya rce(s) Supporting Document(s) WHITE BLOOD COUNT 7.8 K[facility]mm3 4.0-10.0 [facility] 3.62 M/mm3 4.50-6.00 L [facility] l HEMOGLOBIN 12.1 gm/dL 14.0-18.0 L [facility] HEMATOCRIT 35.1 % 42.0-54.0 L [facility] MEAN CELL VOLUME 97.0 fl 80-96 H [facility] l MEAN CORPUSCULAR HEMOGLOBIN 33.4 pg 27.0-31.0 H [facility] MEAN CORPUSCULAR HGB CONC 34.5 g/dl 32.0-36.0 [facility] RED CELL DISTRIBUTION WIDTH 12.1 % 10.0-14.5 [facility] PLATELET COUNT 176 K/mm3 172-450 [facility] MEAN PLATELET VOLUME 10.1 fl 9.0-13.0 [facility] pital GRAN % 73.1 % 50-80.0 [facility] IG% 0.3 % 0.0-0.2 H [facility] LYMPH % 14.3 % 25.0-50.0 L [facility] MONO % 9.8 % 2.0-10.0 [facility] EOS % 2.2 % 0-5.0 [facility] BASO % 0.3 % 0.0-2.0 [facility] GRAN # 5.7 K/mm3 2.0-8.00 [facility] IG# 0.0 K/mm3 0.0-0.2 [facility] LYMPH # 1.1 K/mm3 1.0-5.0 [facility] MONO # 0.8 K/mm3 0.10-1.20 [facility] EOS # 0.2 K/mm3 0.0-0.5 [facility] BASO # 0.0 K/mm3 0.0-0.2 [facility] ID Date Data Source [facility] 06/06/2021 12:00:00 AM EDT eCW1 ([facility]) Name Value Range Interpretation Code Description Data Tanya rce(s) Supporting Document(s) 1.850 0.358-3.740 THYROID STIMULATING HORM ONE eCW1 ([facility]) ID Date Data Source LIPID PANEL (CARDIAC RISK) 06/06/2021 12:00:00 AM EDT eCW1 ( [facility]) Name Value Range Interpretation Code Description Data Tanya rce(s) Supporting Document(s) Cholesterol in HDL [Moles/volume] in Serum or Plasma 83 >40 HDL CHOLESTEROL eCW1 ([facility]) Triglyceride [Mass/volume] in Serum or Plasma by calculation 93 <150 TRIGLYCERIDES LEVEL eCW1 ([facility]) Cholesterol [Moles/volume] in Serum or Plasma 136 <200 CHOLESTEROL LEVEL eCW1 ([facility]) 53 NON-HDL-C eCW1 ([facility]) 1.638 <5 CHOLESTEROL RISK RATIO eCW1 ([facility]) Cholesterol in LDL [Mass/volume] in Serum or Plasma by calculation 34 <100 LDL CHOLESTEROL eCW1 ([facility]) ID Date Data Source FREE T4 06/06/2021 12:00:00 AM EDT eCW1 ([facility]) Name Value Range Interpretation Code Description Data Tanya rce(s) Supporting Document(s) 0.91 0.76-1.46 FREE T4 eCW1 ([facility]) ID Date Data Source Comprehensive Metabolic Profile (CMP) 06/06/2021 12:00:00 AM EDT eCW1 ([facility]) Name Value Range Interpretation Code Description Data Tanya rce(s) Supporting Document(s) 109 70-100 GLUCOSE, FASTING eCW1 ([facility]) 1.07 0.70-1.30 CREATININE FOR GFR eCW1 ([facility]) 11 7-18 BLOOD UREA NITROGEN eCW1 ([facility]) > 60.0 >49 GLOMERULAR FILTRATION RATE eCW 1 ([facility]) 5.0 3.5-5.1 POTASSIUM SERUM eCW1 ([facility]) 110 98-107 CHLORIDE LEVEL eCW1 ([facility]) 141 136-145 SODIUM LEVEL eCW1 ([facility]) 8.6 8.8-10.2 CALCIUM LEVEL eCW1 ([facility]) 27 21-32 CARBON DIOX[facility]EL [facility] 46 12-78 ALT/SGPT eCW1 ([facility]) 74 45-117 ALKALINE PHOSPHATASE [facility] 30 7-37 AST/SGOT eCW1 ([facility]) 4.3 3.2-5.2 ALBUMIN eCW1 ([facility]) 1.2 0.2-1.0 BILIRUBIN,TOTAL eCW1 ([facility]) 6.7 6.4-8.2 TOTAL PROTEIN eCW1 ([facility]) 1.8 ALBUMIN/GLOBULIN RATIO eCW1 ([facility]) Procedure Social History Code Duration Value Status Description Data Source(s ) Smoking 08/18/2021 12:00:00 AM EDT Never Smoker completed Never S moker eCW1 ([facility]) Alcohol intake 08/08/2021 12:00:00 AM EDT Current drinker of al cohol (finding) completed Current drinker of alcohol (finding) [facility] Tobacco use and exposure 08/08/2021 12:00:00 AM EDT Never used co mpleted Never used [facility] Smoking 08/08/2021 12:00:00 AM EDT Never smoker completed Never s moker [facility] Smoking 08/01/2021 12:00:00 AM EDT Never Smoker completed Never S moker eCW1 ([facility]) Smoking 08/01/2021 12:00:00 AM EDT Never Smoker completed Never S moker eCW1 ([facility]) Smoking 08/01/2021 12:00:00 AM EDT Never Smoker completed Never S moker eCW1 ([facility]) Smoking 06/22/2021 12:00:00 AM EDT Never Smoker completed Never S moker eCW1 ([facility]) Smoking 06/06/2021 12:00:00 AM EDT Never Smoker completed Never S moker eCW1 ([facility]) Smoking 06/06/2021 12:00:00 AM EDT Never Smoker completed Never S moker eCW1 ([facility]) Vital Signs ID Date Data Source UNK Name Value Range Interpretation Code Description Data Source(s) Body temperature 97.6 [degF] 97.6 [degF] MEDENT ([facility] Body weight 206 [lb_av] 206 [lb_av] eCW1 ([facility]) Body weight 93.44 kg 93.44 kg W1 ([facility]) Body height [in_i] eCW1 ([facility]) Body mass index (BMI) [Ratio] 33.25 kg/m2 33.25 kg/m2 W1 ([facility]) Heart rate 62 /min 62 /min eCW1 ([facility]) Respiratory rate 18 /min 18 /min eCW1 ([facility]) Body temperature 97.9 [degF] 97.9 [degF] eCW1 ( [facility]) Systolic blood pressure 144 mm[Hg] 144 mm[Hg] e CW1 ([facility]) Diastolic blood pressure 77 mm[Hg] 77 mm[Hg] eCW1 ([facility]) Systolic blood pressure 148 mm[Hg] 148 mm[Hg] [facility] Diastolic blood pressure 95 mm[Hg] 95 mm[Hg] [facility] Heart rate 67 /min 67 /min [facility] Respiratory rate 18 /min 18 /min [facility] Body height 167.[address] [facility] Body weight 93.[address] [facility] Body mass index (BMI) [Ratio] 33.41 kg/m2 33.41 kg/m2 [facility] Oxygen saturation in Arterial blood by Pulse oximetry 98 % 98 % [facility] Body weight 206 [lb_av] 206 [lb_av] eCW1 ([facility]) Body height [in_i] eCW1 ([facility]) Body mass index (BMI) [Ratio] 33.25 kg/m2 33.25 kg/m2 eCW1 ([facility]) Heart rate 60 /min 60 /min eCW1 ([facility]) Respiratory rate 18 /min 18 /min eCW1 ([facility]) Body temperature 97.5 [degF] 97.5 [degF] eCW1 ( [facility]) Systolic blood pressure 154 mm[Hg] 154 mm[Hg] e CW1 ([facility]) Diastolic blood pressure 99 mm[Hg] 99 mm[Hg] eCW1 ([facility]) Body weight 201 [lb_av] 201 [lb_av] eCW1 ([facility]) Body height [in_i] eCW1 ([facility]) Body mass index (BMI) [Ratio] 32.44 kg/m2 32.44 kg/m2 eCW1 ([facility]) Heart rate 72 /min 72 /min eCW1 ([facility]) Respiratory rate 18 /min 18 /min eCW1 ([facility]) Body temperature 98.1 [degF] 98.1 [degF] eCW1 ( [facility]) Systolic blood pressure 160 mm[Hg] 160 mm[Hg] e CW1 ([facility]) Diastolic blood pressure 99 mm[Hg] 99 mm[Hg] eCW1 ([facility]) Body mass index (BMI) [Ratio] 31.5 kg/m2 31.5 k g/m2 MEDENT ([facility] Dickinson body weight 148 [lb_av] 148 [lb_av] MEDEN T ([facility] ) Body weight 91.174 kg 91.174 kg MEDENT ([facility] ) Body surface area Derived from formula 2.03 m2 2.03 m2 MEDENT ([facility] ) Body height 67 [in_i] 67 [in_i] MEDENT ([facility], ) 5'7" Body weight 201.00 [lb_av] 201.00 [lb_av] MEDEN T ([facility], ) Body temperature 98.0 [degF] 98.0 [degF] MEDENT ([facility], ) Body weight 201 [lb_av] 201 [lb_av] eCW1 ([facility]) Body height [in_i] eCW1 ([facility]) Body mass index (BMI) [Ratio] 32.44 kg/m2 32.44 kg/m2 eCW1 ([facility]) Heart rate 74 /min 74 /min eCW1 ([facility]) Respiratory rate 18 /min 18 /min eCW1 ([facility]) Body temperature 97.6 [degF] 97.6 [degF] eCW1 ( [facility]) Systolic blood pressure 168 mm[Hg] 168 mm[Hg] e CW1 ([facility]) Diastolic blood pressure 100 mm[Hg] 100 mm[Hg] eCW1 ([facility])
--- OUTSIDE RECORDS SUMMARY | 2021-09-05 08:11 | CCD ---
Author Author [facility] Organization [facility] Address Unknown Phone Unavailable Care Team Providers Care Coater Helper Name Role Phone Win Micaela Unavailable PROBLEMS Type Condition ICD9-CM Code CPQ02-QU Code Onset Dates Condition S tatus W/U Status Risk SNOMED Code Notes Problem White coat syndrome without diagnosis of hypertension R03.0 Active confirmed [id number] Problem RBBB I45.10 Active confirmed 03313496 Problem Other chronic pain G89.29 Active confirmed 8 9435478 Problem Acquired hypothyroidism E03.9 Active confirmed 112833644 Problem Dyslipidemia E78.5 Active confirmed 9332058 07 Problem IFG (impaired fasting glucose) R73.01 Active confir med [id number] ALLERGIES No Known Allergies ENCOUNTERS from 1950 to 2021-08-11 Encounter Location Date Provider Diagnosis [address] [phone] [place] [address] Jul, Micaela Walden IMMUNIZATIONS No Information SOCIAL HISTORY Tobacco Use: Social History Observation Description Date Details (start date - stop date) Never Smoker Sex Assigned At : Social History Observation Description Sex Assigned At Unknown Audit Question Answer Notes Total Score: 8 Interpretation: Simple Advice Language: Question Answer Notes Languages spoken: Armenian Anabaptism: Question Answer Notes Anabaptism No anabaptism beliefs that would impact health care. Sexual [...] Once a day for 30 day(s) Active Klrjea-Mifwfbuwy-Ewnmhf-Hyal - as directed Orally Active Tylenol Extra [...] Information RESULTS No Results REASON FOR VISIT addendum added to pre-op MEDICAL (GENERAL) HISTORY Type Description Date Medical [...] 90 days Next Appt Details Provider Name:Elsy Cintiajourdanralph, 2021-10 08:00:00 AM, [address], , [place], [address], Insurance Providers Payer Name Payer Address Payer Phone Insured Name Patient Relati onship to Insured Coverage Start Date Coverage End Date [facility] [employer] [address] [address] [facility] [phone] SURY MELENDEZ self
--- OUTSIDE RECORDS SUMMARY | 2021-09-05 08:11 | CCD | Continuity of Care Document ---
Author Author Rayray HE MD Organization Unknown Address [address] , [place] [address] Phone [phone] Care Team Providers Care Wood Window And Door Craftsman Name Role Phone AUTM Unavailable Elsy Heart D.O. AUTM [phone] Problems Description No Information Available Social History Type Date Description Comments Sex Unknown ETOH Use 4 A Day beer Tobacco Use Start: Unknown Denies Smoking Recreational Drug Use Denies Drug Use Smoking Status Reviewed: 06/10/21 Denies Smoking Allergies and adverse reactions Description [...] 500mg Tablets 1 a d ay Unknown History Medications Bactrim DS 800-160mg Tablets 1 by mouth twice a day 20tabs Ghassan He MD 08/13/2021 - Immunizations Description No Information Available Vital Signs Date Vital Result Comment 06/10/2021 9:11am Body Temperature 98.0 F Height 67 inches 5'7" Weight 201.00 lb BMI (Body Mass Index) 31.5 kg/m2 [place] Body Weight 148 lb Weight 91.174 kg BSA (Body Surface Area) 2.03 m2 07/07/2019 10:44am BP Systolic 164 mmHg BP Diastolic 98 mmHg Height 67 inches 5'7" Weight 198.38 lb BMI (Body Mass Index) 31.1 kg/m2 [place] Body Weight 148 lb Weight 89.983 kg BSA (Body Surface Area) 2.02 m2 Results Test Acquired Date Facility Test Result H/L Range Note CBC W/Diff 08/17/[address] [address] [phone] WBC 7.8 K/mm3 4.0-10.0 RBC 3.62 M/mm3 [...] K/mm3 0.0-0.2 Procedures Date Code Description Status 06/10/2021 48988 Office/Outpatient New Moderate M DM 45-59 Minutes Completed Medical Devices Description No Information Available Encounters Type Date Location Provider Dx Diagnosis Office Visit 06/10/2021 9:00a [facility] Ghassan He MD 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 Thank you, DN Sent [facility] [address] [id number] [phone]
--- OUTSIDE RECORDS SUMMARY | 2021-09-05 08:11 | CCD | Continuity of Care Document ---
Author Author Rayray HE MD Organization Unknown Address [address] , [place] [address] Phone [phone] Care Team Providers Care Manager Telecom Name Role Phone AUTM Unavailable Elsy Heart D.O. AUTM [phone] Problems Description No Information Available Social History [...] lb BMI (Body Mass Index) 31.5 kg/m2 [place] Body Weight 148 lb Weight 91.174 kg BSA (Body Surface Area) 2.03 m2 Results Test Acquired Date Facility Test Result H/L Range Note CBC W/Diff 08/17/[address] [address] [phone] WBC 7.8 K/mm3 4.0-10.0 RBC 3.62 M/mm3 [...] 0.0-0.2 Procedures Date Code Description Status 08/11/2021 52222 Arthroplasty Hip Total Completed 06/10/2021 75327 Office/Outpatient New Moderate M DM 45-59 Minutes Completed Medical Devices Description No Information Available Encounters Type Date Location Provider Dx Diagnosis Office Visit 08/22/2021 9:30a [facility] Ghassan He MD Z96.641 Presence of right artificial hip joint Z47.89 Encounter for other orthoped ic aftercare Office Visit 06/10/2021 9:00a [facility] Ghassan He MD 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, right hip Assessments Date Code Description Provider 08/22/2021 Z96.641 Presence of right artificial hip joint Ghassan He MD 08/22/2021 Z47.89 Encounter for other orthopedic a ftercare Ghassan He MD 08/11/2021 M16.31 Unilateral osteoarth ritis resulting from hip dysplasia, right hip Ghassan He MD 08/11/2021 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 X-ray imaging taken today looks good with no signs of complications. The patient will be evaluated by physical therapy today. We will send a for the physical therapy outpatient prescription for him for the [facility]. I will see him for follow-up in 4 weeks for reevaluation. * Follow up:* 4 weeks * Z47.89 Encounter for other orthopedic aftercare Functional Status Description No Information Available Mental Status Description No Information Available Referrals Refer to Dr Reason for Referral Status Appt Date Tonny [...] risk of infections. Thank you, DN Sent [facility] [address] [address] [phone]
--- OUTSIDE RECORDS SUMMARY | 2021-09-05 08:11 | CCD | Continuity of Care Document ---
Author Author Rayray HE MD Organization Unknown Address [address] , [place] [address] Phone [phone] Care Team Providers Care Restaurant Cook Name Role Phone AUTM Unavailable Elsy Heart D.O. AUTM [phone] Problems Description No Information Available Social History [...] lb BMI (Body Mass Index) 31.5 kg/m2 [place] Body Weight 148 lb Weight 91.174 kg BSA (Body Surface Area) 2.03 m2 07/07/2019 10:44am BP Systolic 164 mmHg BP Diastolic 98 mmHg Height 67 inches 5'7" Weight 198.38 lb BMI (Body Mass Index) 31.1 kg/m2 [place] Body Weight 148 lb Weight 89.983 kg BSA (Body Surface Area) 2.02 m2 Results Test Acquired Date Facility Test Result H/L Range Note CBC W/Diff 08/17/[address] [address] [phone] WBC 7.8 K/mm3 4.0-10.0 RBC 3.62 M/mm3 [...] 0.0-0.2 Procedures Date Code Description Status 08/11/2021 95356 Arthroplasty Hip Total Completed 06/10/2021 78850 Office/Outpatient New Moderate M DM 45-59 Minutes Completed Medical Devices Description No Information Available Encounters Type Date Location Provider Dx Diagnosis Office Visit 06/10/2021 9:00a [facility] Ghassan He MD 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 Thank you, DN Sent [facility] [address] [address] [phone]
--- OUTSIDE RECORDS SUMMARY | 2021-09-05 08:11 | CCD ---
Author Author [facility] Organization [facility] Address Unknown Phone Unavailable Care Team Providers Care Burglar Alarm Mechanic Name Role Phone Emily Benitez Unavailable PROBLEMS Type Condition ICD9-CM Code [id number] Code Onset Dates Condition S tatus W/U Status Risk SNOMED Code Notes Problem Other chronic pain G89.29 Active confirmed 8 3534144 Problem RBBB I45.10 Active confirmed 45868675 Problem Status post right hip replacement Z96.641 Active confirmed 629480005 Problem Acquired hypothyroidism E03.9 Active confirmed 099565831 Problem Dyslipidemia E78.5 Active confirmed 7202779 07 Problem IFG (impaired fasting glucose) R73.01 Active confir med 491427995 Problem White coat syndrome without diagnosis of hypertension R03.0 Active confirmed 794565698 ALLERGIES No Known Allergies ENCOUNTERS from 1950 to 2021-08-22 Encounter Location Date Provider Diagnosis [address] [phone] [place] [address] Jul, Emily Benitez Status post right hip replacement Z96.64 1 IMMUNIZATIONS No Information SOCIAL HISTORY Tobacco Use: Social History Observation Description Date Details (start date - stop date) Never Smoker Sex Assigned At : Social History Observation Description Sex Assigned At Unknown Audit Question Answer Notes Total Score: 8 Interpretation: Simple Advice Language: Question Answer Notes Languages spoken: [place] Anglican: Question Answer Notes Anglican No worship beliefs that would impact health care. Sexual [...] FOR REFERRAL No Information VITAL SIGNS Weight 206 lbs Jul, Weight-kg 93.44 kg Jul, Height 5'6" in Jul, BMI 33.25 kg/m2 Jul, Heart Rate 62 /min Jul, Respiratory Rate 18 /min Jul, Temperature 97.9 degrees Fahrenheit Jul, Oximetry 98 Jul, Blood pressure systolic 144 mm Hg Jul, Blood pressure diastolic 77 mm Hg Jul, MEDICATIONS Medication SIG (Take, Route, Frequency, Duration) Notes Start Da te End Date Status Aspirin 81 81 MG 1 tablet Orally Once a day Not-Taking Multivitamin Adult - 1 tablet Orally Once a day for 30 day(s) Active oxyCODONE HCl 5 MG 1 tablet as needed Orally ev marlen 6 hrs (post surgery, only taking for severe pain) Has but is not taking unless absolutely needed Active Ferrous Sulfate 325 (65 Fe) MG 1 tablet Orally Once a day for 30 day( s) Active Folic Acid 1 MG 1 tablet Orally Once a day for 30 day(s) Active Colace 100 MG 1 capsule as needed Orally Once a day for 30 day(s) Active Vitamin C 500 MG as directed Orally Active Move Free Ultra Joint Health 40-5-3.3 MG as directed Orally Active Thiamine HCl 100 MG 1 tablet Orally Once a day for 30 day(s) Active Crestor 40 MG 1 tablet Orally Once a day for 90 days Active Aleve 220 MG 1 tablet with food or milk as needed Orally every 12 hrs Active Yxxyof-Ggzttykzq-Mfwtil-Hyal - as directed Orally Active Aspirin 81 MG 1 tablet Orally bid Ac tive Tylenol Extra Strength 500 MG 1 tablet as needed Orally every 6 hrs Active Synthroid 50 MCG 1 tablet in the morning on a n empty stomach Orally Once a day for 90 days Active PROCEDURES No Information RESULTS No Results REASON FOR VISIT [facility] D/C 08/12/21 Right Hip Osteoarthiritis MEDICAL (GENERAL) HISTORY Type Description Date Medical History high cholesterol Medical History athritis Medical History hypothyroid Surgical History Right Hip Replacement - [facility] Ortho 2020 Hospitalization History Surgery - right hip replacement 07/29-08/12/21 Goals Section No Information Health Concerns No Information MEDICAL EQUIPMENT No Information MENTAL STATUS No Information FUNCTIONAL STATUS No Information ASSESSMENTS Encounter Date Diagnosis Assessment Notes Treatment Notes Treatm ent Clinical Notes Jul, Status post right hip replacement (ICD-10 - Z96. 641) Patient is doing well postoperatively. He is to continue follow-up with his orthopedist. He will contact the office for any further concerns or complaints. PLAN OF TREATMENT Treatment Notes Assessment Notes Clinical Notes Status post right hip replacement Reema richardson is doing well postoperatively. He is to continue follow-up with his orthopedist. He will contact the office for any further concerns or complaints. Next Appt Details prn Reason: Provider Name:Elsy Heart, 2021-10 08:00:00 AM, [address], , [place], [address], Insurance Providers Payer Name Payer Address Payer Phone Insured Name Patient Relati onship to Insured Coverage Start Date Coverage End Date [facility] [employer] [address] [address] [facility] [phone] SURY MELENDEZ self
== END 2021-08-12 13:15 | disposition home or self-care (01) | DRG 470 ==
LOC: M SDC 08:20 → M MS5PR 13:56 → M SDC 17:35 → M MS5PR 17:35 → M SDC 08-12 13:15
PROVIDERS: ADMIT Internal Medicine; ATTEND Orthopaedic Surgery Adult Reconstructive Orthopaedic Surgery
PROC: 8E0Y0CZ Robotic Assisted Procedure of Lower Extremity, Open Approach (ICD-10-PCS; 2021-08-11)
PROC: 0SR904Z Replacement of Right Hip Joint with Ceramic on Polyethylene Synthetic Substitute, Open Approach (ICD-10-PCS; principal; 2021-08-11 10:45)
DX: M16.11 Unilateral primary osteoarthritis, right hip (principal); E78.5 Hyperlipidemia, unspecified; E03.9 Hypothyroidism, unspecified; F17.218 Nicotine dependence, cigarettes, with other nicotine-induced disorders; Z79.82 Long term (current) use of aspirin; Z79.899 Other long term (current) drug therapy

== ENCOUNTER → 2021-08-22 | Outpatient (CLI) | payer MEDICARE ==
[~2021-08-22] MED LIST changes: -ACETAMINOPHEN 500 MG TAB PO ONE; +ASPI81CH8 PO; +DOCU100C16 PO; +FERR1TAB8 PO; +FOLI1TAB11 PO; -LIDOCAINE 1% MDV 20ML VIAL SQ PRN; -LR 1,000 ML IV ONE; -NAPROXEN 250 MG TAB PO ONE; -NS 1,000 ML IV ONE; +OXYC-517 PO; -PREGABALIN 25 MG CAP (LYRICA) PO ONE; -ROPIVA 125MG/EPINEPH 0.25MG/CLONID 40MCG/KETOR 15MG IN NS 50ML SYRINGE PA ONE; +THIA100TA PO; -TRANEXAMIC ACID INJection 1,000 MG in NS 50 ML IV ONE; -ceFAZolin SOD 2 GM in IV 1 EA IV ONE; -dexameTHASONE 4 MG/ML 1ML VIAL (J1100 PER 1MG) IV ONE
--- NOTE | 2021-08-22 10:36 | REP ---
INDICATION: RT HIP REPLACEMENT. COMPARISON: 08/11/2021 AP pelvis TECHNIQUE: AP pelvis two views right hip FINDINGS: Once again, there is a total right hip prosthetic device in place the femoral and acetabular components of which are again well seated and well approximated. There is no acute fracture, dislocation, or subluxation. IMPRESSION: As above <Electronically signed by Robert Garvey > 08/22/21 [id number]
== END ==
LOC: M SOG 08:38
PROVIDERS: ATTEND Orthopaedic Surgery Adult Reconstructive Orthopaedic Surgery
DX: Z96.641 Presence of right artificial hip joint (principal)

== ENCOUNTER → 2021-09-13 | Outpatient (REF) | payer MEDICARE ==
[2021-09-13 17:20] LABS: APPEARANCE, URINE CLEAR (CLEAR); BACTERIA, URINE AUTO NEGATIVE (NEGATIVE); BILIRUBIN, URINE AUTO NEGATIVE (NEGATIVE); BLOOD, URINE BLOOD NEGATIVE (NEGATIVE); COLOR, URINE YELLOW (YELLOW); GLUCOSE, URINE (UA) AUTO NEGATIVE (NEGATIVE); KETONE, URINE AUTO NEGATIVE (NEGATIVE); LEUKOCYTE ESTERASE, URINE AUTO NEGATIVE (NEGATIVE); MUCUS, URINE SMALL (NEGATIVE); NITRITE, URINE AUTO NEGATIVE (NEGATIVE); PROTEIN, URINE AUTO NEGATIVE (NEGATIVE); RBC, URINE AUTO 1 /HPF (0-3); SQUAMOUS EPITHELIAL CELL UR AU 0 /HPF (0-6); UROBILINOGEN, URINE AUTO 0.2 mg/dL (0.0-2.0); WBC, URINE AUTO 0 /HPF (0-3)
== END ==
LOC: M SMT 16:40
PROVIDERS: ATTEND Urology
DX: N32.9 Bladder disorder, unspecified (principal)
CPT/HCPCS: 81001; 88108; G0463

== ENCOUNTER → 2021-11-01 | Outpatient (REF) | payer MEDICARE ==
[2021-11-01 12:12] LABS: HEMOGLOBIN A1c 5.5 %
[2021-11-01 12:33] LABS: FREE T4 0.93 NG/DL (0.76-1.46); THYROID STIMULATING HORMONE 4.2 uIU/ML (0.358-3.740)
== END ==
LOC: M SFHCCLAY 08:35
PROVIDERS: ATTEND Family Medicine
DX: E03.9 Hypothyroidism, unspecified (principal); R73.01 Impaired fasting glucose
CPT/HCPCS: 83036; 84439; 84443; G0463

== ENCOUNTER → 2022-04-05 | Outpatient (REF) | payer MEDICARE ==
[2022-04-05 12:12] LABS: CHOLESTEROL RISK RATIO 1.442 (<5); FREE T4 0.99 NG/DL (0.76-1.46); THYROID STIMULATING HORMONE 3.01 uIU/ML (0.358-3.740)
== END ==
LOC: M SFHCCLAY 08:43
PROVIDERS: ATTEND Family Medicine
DX: E03.9 Hypothyroidism, unspecified (principal); E78.5 Hyperlipidemia, unspecified

== ENCOUNTER → 2022-08-16 | Outpatient (CLI) | payer MEDICARE | LOC: M SOG 07:57 | PROVIDERS: ATTEND Orthopaedic Surgery Adult Reconstructive Orthopaedic Surgery | DX: Z96.641 Presence of right artificial hip joint (principal) ==

== ENCOUNTER → 2022-10-10 | Outpatient (REF) | payer MEDICARE ==
[2022-10-10 12:28] LABS: ALKALINE PHOSPHATASE 78 U/L (46-116); ALT/SGPT 33 U/L (7.0-40); AST/SGOT 27 U/L (<34); BILIRUBIN,TOTAL 1.3 MG/DL (0.3-1.2); BLOOD UREA NITROGEN 15 MG/DL (9-23); CALCIUM LEVEL 8.9 MG/DL (8.3-10.6); CARBON DIOXIDE LEVEL 24 MMOL/L (20-31); CHLORIDE LEVEL 108 MMOL/L (98-107); CHOLESTEROL LEVEL 140 MG/DL (<200); CHOLESTEROL RISK RATIO 1.72 (<5); CREATININE FOR GFR 0.92 MG/DL (0.70-1.30); GLOMERULAR FILTRATION RATE > 60.0 (>42); GLUCOSE, FASTING 111 MG/DL (74-106); HDL CHOLESTEROL 81.3 MG/DL (>40); LDL CHOLESTEROL 48.3 MG/DL (<100); NON-HDL-C 59 MG/DL; POTASSIUM SERUM 4.9 MMOL/L (3.5-5.1); SODIUM LEVEL 137 MMOL/L (136-145); TOTAL PROTEIN 6.6 G/DL (5.7-8.2); TRIGLYCERIDES LEVEL 52 MG/DL (<150)
[2022-10-10 12:31] LABS: FREE T4 1.13 NG/DL (0.89-1.76)
[2022-10-10 12:32] LABS: THYROID STIMULATING HORMONE 4.547 uIU/ML (0.55-4.78)
[2022-10-10 14:21] LABS: HEMOGLOBIN A1c 5.4 % (4.0-6.0)
== END ==
LOC: M SFHCCLAY 08:48
PROVIDERS: ATTEND Nurse Practitioner Family
DX: E78.5 Hyperlipidemia, unspecified (principal); E03.9 Hypothyroidism, unspecified; R73.01 Impaired fasting glucose; R03.0 Elevated blood-pressure reading, without diagnosis of hypertension; N32.9 Bladder disorder, unspecified
CPT/HCPCS: 80053; 80061; 83036; 84439; 84443; G0103

== ENCOUNTER → 2023-03-28 | Outpatient (REF) | payer MEDICARE ==
[2023-03-28 17:53] LABS: ALKALINE PHOSPHATASE 79 U/L (46-116); ALT/SGPT 24 U/L (7.0-40); AST/SGOT 22 U/L (<34); BILIRUBIN,TOTAL 1.7 MG/DL (0.3-1.2); BLOOD UREA NITROGEN 15 MG/DL (9-23); CALCIUM LEVEL 8.4 MG/DL (8.3-10.6); CARBON DIOXIDE LEVEL 21 MMOL/L (20-31); CHLORIDE LEVEL 106 MMOL/L (98-107); CHOLESTEROL LEVEL 124 MG/DL (<200); CHOLESTEROL RISK RATIO 1.69 (<5); CREATININE FOR GFR 1.11 MG/DL (0.70-1.30); GLOMERULAR FILTRATION RATE > 60.0 (>42); GLUCOSE, FASTING 106 MG/DL (74-106); HDL CHOLESTEROL 73.2 MG/DL (>40); LDL CHOLESTEROL 30.2 MG/DL (<100); NON-HDL-C 50.8 MG/DL; POTASSIUM SERUM 4.3 MMOL/L (3.5-5.1); SODIUM LEVEL 138 MMOL/L (136-145); TOTAL PROTEIN 6.3 G/DL (5.7-8.2); TRIGLYCERIDES LEVEL 103 MG/DL (<150)
[2023-03-28 18:13] LABS: HEMOGLOBIN A1c 5.5 % (4.0-6.0)
== END ==
LOC: M SFHCCLAY 13:40
PROVIDERS: ATTEND Nurse Practitioner Family
DX: E78.5 Hyperlipidemia, unspecified (principal); E03.9 Hypothyroidism, unspecified; R73.01 Impaired fasting glucose; R03.0 Elevated blood-pressure reading, without diagnosis of hypertension; N32.9 Bladder disorder, unspecified

== ENCOUNTER → 2023-09-12 | Outpatient (REF) | payer MEDICARE ==
[2023-09-12 19:03] LABS: BLOOD UREA NITROGEN 16 MG/DL (9-23); CARBON DIOXIDE LEVEL 24 MMOL/L (20-31); CHLORIDE LEVEL 106 MMOL/L (98-107); CREATININE FOR GFR 1.17 MG/DL (0.70-1.30); GLOMERULAR FILTRATION RATE > 60.0 (>42); GLUCOSE, FASTING 131 MG/DL (74-106); POTASSIUM SERUM 4.2 MMOL/L (3.5-5.1); SODIUM LEVEL 139 MMOL/L (136-145)
== END ==
LOC: M SFHCCLAY 13:23
PROVIDERS: ATTEND Nurse Practitioner Family
DX: M75.51 Bursitis of right shoulder (principal); G89.29 Other chronic pain

== ENCOUNTER → 2024-04-09 | Outpatient (REF) | payer MEDICARE ==
[~2024-04-09] MED LIST changes: -ROSU40TA4 PO; +ROSU40TA63 PO
[2024-04-09 17:33] LABS: BILIRUBIN,TOTAL 1.5 MG/DL (0.3-1.2); CALCIUM LEVEL 9.6 MG/DL (8.3-10.6); CHOLESTEROL RISK RATIO 1.81 (<5); CREATININE FOR GFR 1.29 MG/DL (0.70-1.30); GLOMERULAR FILTRATION RATE 58.3 (>42); HDL CHOLESTEROL 73.2 MG/DL (>40); LDL CHOLESTEROL 35.8 MG/DL (<100); NON-HDL-C 59.8 MG/DL; POTASSIUM SERUM 5.1 MMOL/L (3.5-5.1); TOTAL PROTEIN 6.2 G/DL (5.7-8.2)
[2024-04-09 17:34] LABS: FREE T4 1.17 NG/DL (0.89-1.76); THYROID STIMULATING HORMONE 5.149 uIU/ML (0.55-4.78)
[2024-04-09 18:39] LABS: HEMOGLOBIN A1c 5.6 % (4.0-6.0)
== END ==
LOC: M SFHCCLAY 09:37
PROVIDERS: ATTEND Nurse Practitioner Family
DX: M75.51 Bursitis of right shoulder (principal); E03.9 Hypothyroidism, unspecified; E78.5 Hyperlipidemia, unspecified; R73.01 Impaired fasting glucose; R03.0 Elevated blood-pressure reading, without diagnosis of hypertension; N32.9 Bladder disorder, unspecified

== ENCOUNTER → 2024-08-05 | Outpatient (REF) | payer MEDICARE ==
[~2024-08-05] MED LIST changes: -ROSU40TA63 PO; +ROSU40TA81 PO
== END ==
LOC: M SFHCDERM 16:42
PROVIDERS: ATTEND Physician Assistant
DX: C44.519 Basal cell carcinoma of skin of other part of trunk (principal)

== ENCOUNTER → 2024-08-11 | Outpatient (CLI) | payer MEDICARE | LOC: M SOG 07:58 | PROVIDERS: ATTEND Orthopaedic Surgery | DX: Z96.641 Presence of right artificial hip joint (principal) ==

== ENCOUNTER → 2024-10-08 | Outpatient (REF) | payer MEDICARE ==
[2024-10-08 12:38] LABS: ALBUMIN 3.9 G/DL (3.2-5.2); ALKALINE PHOSPHATASE 74 U/L (40-129); ALT/SGPT 36 U/L (7.0-40); AST/SGOT 19 U/L (<34); BILIRUBIN,TOTAL 1.5 MG/DL (0.3-1.2); BLOOD UREA NITROGEN 16 MG/DL (9-23); CALCIUM LEVEL 9.7 MG/DL (8.3-10.6); CARBON DIOXIDE LEVEL 25 MMOL/L (20-31); CHLORIDE LEVEL 109 MMOL/L (98-107); CHOLESTEROL LEVEL 150 MG/DL (<200); CHOLESTEROL RISK RATIO 1.94 (<5); CREATININE FOR GFR 1.02 MG/DL (0.70-1.30); GLOMERULAR FILTRATION RATE > 60.0 (>42); GLUCOSE, FASTING 111 MG/DL (74-106); HDL CHOLESTEROL 77.3 MG/DL (>40); LDL CHOLESTEROL 59.9 MG/DL (<100); NON-HDL-C 72.7 MG/DL; POTASSIUM SERUM 4.9 MMOL/L (3.5-5.1); SODIUM LEVEL 139 MMOL/L (136-145); TOTAL PROTEIN 6.4 G/DL (5.7-8.2); TRIGLYCERIDES LEVEL 64 MG/DL (<150)
[2024-10-08 12:40] LABS: FREE T4 1.06 NG/DL (0.89-1.76); THYROID STIMULATING HORMONE 5.686 uIU/ML (0.55-4.78)
== END ==
LOC: M SFHCCLAY 08:20
PROVIDERS: ATTEND Nurse Practitioner Family
DX: E03.9 Hypothyroidism, unspecified (principal); E78.5 Hyperlipidemia, unspecified; R73.01 Impaired fasting glucose; R03.0 Elevated blood-pressure reading, without diagnosis of hypertension; N32.9 Bladder disorder, unspecified

== ENCOUNTER → 2025-02-11 | Outpatient (REF) | payer MEDICARE ==
[2025-02-11 12:29] LABS: BILIRUBIN,TOTAL 1.7 MG/DL (0.3-1.2); CALCIUM LEVEL 8.9 MG/DL (8.3-10.6); CHOLESTEROL RISK RATIO 1.78 (<5); CREATININE FOR GFR 1.04 MG/DL (0.70-1.30); GLOMERULAR FILTRATION RATE 76.3 (>42); HDL CHOLESTEROL 79.5 MG/DL (>40); HEMATOCRIT 48.8 % (42.0-52.0); HEMOGLOBIN 16.6 g/dl (13.5-17.5); LDL CHOLESTEROL 43.5 MG/DL (<100); MEAN CORPUSCULAR HEMOGLOBIN 32.8 pg (27.0-33.0); MEAN CORPUSCULAR VOLUME 96.4 fl (80.0-96.0); NON-HDL-C 62.5 MG/DL; PLATELET COUNT, AUTOMATED 127 10^3/uL (150-450); POTASSIUM SERUM 4.8 MMOL/L (3.5-5.1); PSA SCREENING 1.73 NG/ML (< 4.00); RED BLOOD COUNT 5.06 10^6/uL (4.30-6.10); TOTAL PROTEIN 6.4 G/DL (5.7-8.2); WHITE BLOOD COUNT 6.2 10^3/uL (4.0-10.0)
[2025-02-11 12:31] LABS: FREE T4 1.23 NG/DL (0.89-1.76)
[2025-02-11 12:32] LABS: THYROID STIMULATING HORMONE 5.988 uIU/ML (0.55-4.78)
== END ==
LOC: M SFHCCLAY 07:25
PROVIDERS: ATTEND Nurse Practitioner Family
DX: E03.9 Hypothyroidism, unspecified (principal); E78.5 Hyperlipidemia, unspecified; R73.01 Impaired fasting glucose; N32.9 Bladder disorder, unspecified; Z12.11 Encounter for screening for malignant neoplasm of colon; Z12.12 Encounter for screening for malignant neoplasm of rectum; Z12.5 Encounter for screening for malignant neoplasm of prostate
CPT/HCPCS: 80053; 80061; 84439; 84443; 85027; G0103